=== PATIENT | male | born 1950 | race Caucasian/White ===

== ENCOUNTER 2017-04-26 09:24 | Emergency (ER) | payer MEDICARE, OTHER ==
--- NOTE | 2017-04-26 09:59 | ED ---
General Adult HPI - General Source: patient, RN notes reviewed Mode of arrival: ambulatory Limitations: no limitations <Chelsie Henning - Last Filed: 04/26/17 12:18> <Charly Garces - Last Filed: 04/26/17 21:53> - General Chief complaint: Urogenital Stated complaint: urninating blood Time Seen by Provider: 04/26/17 09:29 - History of Present Illness Initial comments: 66-year-old male who is currently on Coumadin presents to the emergency department with a chief complaint of hematuria. Patient states that he has been having on and off blood in the urine for about a week but today it started to turn very consistent. Patient denies any lightheadedness or dizziness. Patient states he has no history of this in the past. Patient denies any falls traumas or injuries or any abdominal pain. Patient states that he is not currently having any other symptoms. Patient states sometimes his stream is less then normal with this. Patient denies any recent fever, chills, shortness of breath, chest pain, back pain, abdominal pain, nausea vomiting, numbness or tingling, dysuria, constipation or diarrhea, headaches or visual changes, or any other current symptoms. (Chelsie Henning) - Related Data Home Medications Medication Instructions Recorded Confirmed Furosemide [Lasix] 20 mg PO QAM 08/11/14 04/26/17 Metoprolol Tartrate [Lopressor] 50 mg PO BID 08/11/14 04/26/17 Warfarin [Coumadin] 5 mg PO SUTUWETHSA 08/11/14 04/26/17 Cholecalciferol [Vitamin D3] 2,000 unit PO 11/02/14 04/26/17 Multivitamin [Men's Multi-Vitamin] 1 tab PO HS 11/30/15 04/26/17 glipiZIDE [Glucotrol] 5 mg PO AC-BID 11/30/15 04/26/17 Calcium/Magnesium/Zinc 1 tab PO HS 06/25/16 04/26/17 [Skhhfle-Hqhxvimwi-Ildr Tablet] Cider Vinegar [Apple Cider Vinegar] 300 mg PO HS 06/25/16 04/26/17 [place]-3 Fatty Acids/Fish Oil [Fish 1 cap PO 06/25/16 04/26/17 Oil 1,000 mg Softgel] Warfarin [Coumadin] 7.5 mg PO MOFR 06/25/16 04/26/17 metFORMIN HCL [Glucophage] 500 mg PO BID 06/25/16 04/26/17 Lisinopril [Zestril] 20 mg PO DAILY 04/26/17 04/26/17 Potassium 99 mg PO HS 04/26/17 04/26/17 Allergies Allergy/AdvReac Type Severity Reaction Status Date / Time No Known Allergies Allergy Verified 04/26/17 12:16 Review of Systems ROS Other: All systems not noted in ROS Statement are negative. <Chelsie Henning - Last Filed: 04/26/17 12:18> ROS Other: All systems not noted in ROS Statement are negative. <Charly Garces - Last Filed: 04/26/17 21:53> ROS Statement: Those systems with pertinent positive or pertinent negative responses have been documented in the HPI. 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 Mother Family Medical History: Cancer, COPD Additional Family Medical History / Comment(s): Mother at age 74 yrs after a hip fracture complicated by her COPD. She had had breast cancer. <Chelsie Henning - Last Filed: 04/26/17 12:18> General Exam Limitations: no limitations <Chelsie Henning - Last Filed: 04/26/17 12:18> <Charly Garces - Last Filed: 04/26/17 21:53> - General Exam Comments Initial Comments: General: The patient is awake and alert, in no distress, and does not appear acutely ill. Eye: Pupils are equal, round. Ears, nose, mouth and throat: There are moist mucous membranes. Neck: The neck is supple, there is no tenderness. Cardiovascular: There is a regular rate and rhythm. No murmur, rub or gallop is appreciated. Respiratory: Lungs are clear to auscultation, respirations are non-labored, breath sounds are equal. No wheezes, stridor, rales, or rhonchi. Gastrointestinal: Soft, non-distended, non-tender abdomen without masses or organomegaly noted. There is no rebound or guarding present. No CVA tenderness. Bowel sounds are unremarkable. Back: There is no tenderness to palpation in the midline. There is no obvious deformity. No rashes noted. Musculoskeletal: Normal ROM, no tenderness, There is no pedal edema. There is no calf tenderness or swelling. Sensation intact. Pulses equal bilaterally 2+. Neurological: CN II-XII intact, There are no obvious motor or sensory deficits. Coordination appears grossly intact. Speech is normal. Skin: Skin is warm and dry and no rashes or lesions are noted. Psychiatric: Cooperative, appropriate mood & affect, normal judgment. (Chelsie Henning) Medical Decision Making - Lab Data Result diagrams: 04/26/17 09:52 04/26/17 09:52 - Radiology Data Radiology results: report reviewed, image reviewed <Chelsie Henning - Last Filed: 04/26/17 12:18> - Lab Data Result diagrams: 04/26/17 09:52 04/26/17 09:52 <Charly Garces - Last Filed: 04/26/17 21:53> - Medical Decision Making 66-year-old male presents to the emergency department with a chief complaint of hematuria. Case is discussed with Dr. Thomas via Dr. Garces and he is recommending discharged home with follow-up outpatient with urology. We did discuss this with the patient is negative plan. All questions have been answered. This and the patient will be discharged home. (Chelsie Henning) Case was discussed with the patient's urologist. All laboratory studies and images were reviewed. Patient will follow up as an outpatient. He is instructed to return to the emergency department with inability to pass urine or the onset of pain. (Charly Garces) - Lab Data Lab Results 04/26/17 04/26/1717 Range/Units 09:38 09:52 09:52 WBC 5.9 (3.8-10.6) k/uL RBC 4.64 (4.30-5.90) m/uL Hgb 15.1 (13.0-17.5) gm/dL Hct 43.2 (39.0-53.0) % MCV 93.2 (80.0-100.0) fL MCH 32.5 (25.0-35.0) pg MCHC 34.8 (31.0-37.0) g/dL RDW 14.4 (11.5-15.5) % Plt Count 194 (150-450) k/uL Neutrophils % 60 % Lymphocytes % 28 % Monocytes % 4 % Eosinophils % 6 % Basophils % 1 % Neutrophils # 3.5 (1.3-7.7) k/uL Lymphocytes # 1.6 (1.0-4.8) k/uL Monocytes # 0.2 (0-1.0) k/uL Eosinophils # 0.4 (0-0.7) k/uL Basophils # 0.0 (0-0.2) k/uL PT (9.0-12.0) sec INR (<1.1) APTT (22.0-30.0) sec Sodium 138 (137-145) mmol/L Potassium 4.0 (3.5-5.1) mmol/L Chloride 100 (98-107) mmol/L Carbon Dioxide 22 (22-30) mmol/L Anion Gap 16 mmol/L BUN 21 H (9-20) mg/dL Creatinine 0.86 (0.66-1.25) mg/dL Est GFR (MDRD) Af Amer >60 (>60 ml/min/1.73 sqM) Est GFR (MDRD) Non-Af >60 (>60 ml/min/1.73 sqM) Glucose 371 H (74-99) mg/dL POC Glucose (mg/dL) (75-99) mg/dL POC Glu Storekeeper Steward ID Calcium 9.0 (8.4-10.2) mg/dL Total Bilirubin 0.9 (0.2-1.3) mg/dL AST 40 (17-59) U/L ALT 45 (21-72) U/L Alkaline Phosphatase 71 (38-126) U/L Total Protein 7.0 (6.3-8.2) g/dL Albumin 4.1 (3.5-5.0) g/dL Urine Color Red Urine Appearance Clear (Clear) Urine pH 5.5 (5.0-8.0) Ur Specific [place] 1.015 (1.001-1.035) Urine Protein 2+ H (Negative) Urine Glucose (UA) 4+ H (Negative) Urine Ketones Trace H (Negative) Urine Blood Large H (Negative) Urine Nitrite Negative (Negative) Urine Bilirubin Negative (Negative) Urine Urobilinogen <2.0 (<2.0) mg/dL Ur Leukocyte Esterase Small H (Negative) Urine RBC >182 H (0-5) /hpf Urine WBC >182 H (0-5) /hpf Urine WBC Clumps Many H (None) /hpf Urine Bacteria Rare H (None) /hpf 04/26/17 04/26/17 Range/Units 09:52 11:51 WBC (3.8-10.6) k/uL RBC (4.30-5.90) m/uL Hgb (13.0-17.5) gm/dL Hct (39.0-53.0) % MCV (80.0-100.0) fL MCH (25.0-35.0) pg MCHC (31.0-37.0) g/dL RDW (11.5-15.5) % Plt Count (150-450) k/uL Neutrophils % % Lymphocytes % % Monocytes % % Eosinophils % % Basophils % % Neutrophils # (1.3-7.7) k/uL Lymphocytes # (1.0-4.8) k/uL Monocytes # (0-1.0) k/uL Eosinophils # (0-0.7) k/uL Basophils # (0-0.2) k/uL PT 20.7 H (9.0-12.0) sec INR 2.2 (<1.1) APTT 28.9 (22.0-30.0) sec Sodium (137-145) mmol/L Potassium (3.5-5.1) mmol/L Chloride (98-107) mmol/L Carbon Dioxide (22-30) mmol/L Anion Gap mmol/L BUN (9-20) mg/dL Creatinine (0.66-1.25) mg/dL Est GFR (MDRD) Af Amer (>60 ml/min/1.73 sqM) Est GFR (MDRD) Non-Af (>60 ml/min/1.73 sqM) Glucose (74-99) mg/dL POC Glucose (mg/dL) 256 H (75-99) mg/dL POC Glu Storekeeper Steward ID [place] Calcium (8.4-10.2) mg/dL Total Bilirubin (0.2-1.3) mg/dL AST (17-59) U/L ALT (21-72) U/L Alkaline Phosphatase (38-126) U/L Total Protein (6.3-8.2) g/dL Albumin (3.5-5.0) g/dL Urine Color Urine Appearance (Clear) Urine pH (5.0-8.0) Ur Specific [place] (1.001-1.035) Urine Protein (Negative) Urine Glucose (UA) (Negative) Urine Ketones (Negative) Urine Blood (Negative) Urine Nitrite (Negative) Urine Bilirubin (Negative) Urine Urobilinogen (<2.0) mg/dL Ur Leukocyte Esterase (Negative) Urine RBC (0-5) /hpf Urine WBC (0-5) /hpf Urine WBC Clumps (None) /hpf Urine Bacteria (None) /hpf Disposition Time of Disposition: 12:21 <Chelsie Henning - Last Filed: 04/26/17 12:18> <Charly Garces - Last Filed: 04/26/17 21:53> Clinical Impression: Hematuria Disposition: HOME SELF-CARE Condition: Stable Instructions: Hematuria (ED) Additional Instructions: Please use medication as discussed. Please follow up with family doctor if symptoms have not improved over the next two days. Please return to the emergency room if your symptoms increase or worsen or for any other concerns. Referrals: Fabiano Ross DO [Primary Care Provider] - 1-2 days Payam Thomas MD [STAFF PHYSICIAN] - 1-2 days
[2017-04-26 10:10] LABS: Basophils % (A) 1 %; CH 32.6; CHCM 35.2; Eosinophils # (A) 0.4 k/uL (0-0.7); Eosinophils % (A) 6 %; HCT 43.2 % (39.0-53.0); HGB 15.1 gm/dL (13.0-17.5); Luc # (Auto) 0.08; Luc % (Auto) 1; Lymphocytes # (A) 1.6 k/uL (1.0-4.8); Lymphocytes % (A) 28 %; MCH 32.5 pg (25.0-35.0); MCHC 34.8 g/dL (31.0-37.0); MCV 93.2 fL (80.0-100.0); Monocytes # (A) 0.2 k/uL (0-1.0); Monocytes % (A) 4 %; Neutrophils # (A) 3.5 k/uL (1.3-7.7); Neutrophils % (A) 60 %; RBC 4.64 m/uL (4.30-5.90); RDW 14.4 % (11.5-15.5); WBC 5.9 k/uL (3.8-10.6); WBC (Perox) 5.49
[2017-04-26 10:15] LABS: Appearance,Urine Clear (Clear); Bacteria,Urine Rare /hpf; Bilirubin,Urine Negative (Negative); Glucose,Urine (UA) 4+ (Negative); Ketones,Urine Trace (Negative); Leukocyte Esterase,Urine Small (Negative); Nitrite,Urine Negative (Negative); PH, Urine 5.5 (5.0-8.0); Particle Count 4997; Protein,Urine 2+ (Negative); RBC,Urine >182 /hpf (0-5); Specific Gravity,Urine 1.015 (1.001-1.035); UA Billing (MACRO vs. MICRO) MICRO; Urobilinogen,Urine <2.0 mg/dL (<2.0); WBC,Urine >182 /hpf (0-5)
[2017-04-26 10:30] LABS: ALT 45 U/L (21-72); AST 40 U/L (17-59); Alkaline Phosphatase 71 U/L (38-126); Anion Gap 16 mmol/L; Blood Urea Nitrogen 21 mg/dL (9-20); Carbon Dioxide 22 mmol/L (22-30); Chloride 100 mmol/L (98-107); Glucose 371 mg/dL (74-99); Non-African American GFR(MDRD) >60 (>60 ml/min/1.73 sqM); Sodium 138 mmol/L (137-145); Total Bilirubin 0.9 mg/dL (0.2-1.3)
[2017-04-26 10:31] LABS: INR 2.2 (<1.1); Prothrombin Time 20.7 sec (9.0-12.0)
[2017-04-26 10:32] LABS: Partial Thromboplastin Time 28.9 sec (22.0-30.0)
[2017-04-26 10:45] VITALS: RESP 16
[2017-04-26] MEDS ORDERED: INSULIN LISPRO (humaLOG) 300 UNIT/3 ML VIAL SQ ONE (10:46)
[2017-04-26 11:54] LABS: Glucose,Whole Blood 256 mg/dL (75-99)
--- NOTE | 2017-04-26 12:03 | US ---
EXAMINATION TYPE: US kidneys/renal and bladder DATE OF EXAM: 04/26/2017 COMPARISON: CLINICAL HISTORY: Pain. Hematuria. No pain. Hx of renal stones and stents placed bilaterally x 1 ye ar ago EXAM MEASUREMENTS: Right Kidney: 11.4 x 5.3 x 4.7 cm Left Kidney: 12.2 x 5.5 x 5.1 cm Right Kidney: Lateral cyst appearing lesion with septation = 1.2 x 1.0 x 1.0 cm Left Kidney: wnl Bladder: The prostate gland impresses upon the urinary bladder base. Urinary bladder is otherwise unr emarkable. Bilateral Jets seen: Yes There is no evidence for hydronephrosis at this point in time. No nephrolithiasis is seen. Right moses al cortical cysts noted. The urinary bladder is anechoic. Bilateral ureteral jets are seen. IMPRESSION: 1. Renal cortical cyst.
--- NOTE | 2017-04-26 12:05 | XR ---
EXAMINATION TYPE: XR KUB DATE OF EXAM: 04/26/2017 COMPARISON: NONE HISTORY: Pain TECHNIQUE: Single supine KUB image of the abdomen is obtained FINDINGS: Small bowel demonstrates no evidence for dilatation or air fluid levels. Gas and fecal material is seen in non-distended colon. No convincing evidence for pneumoperitoneum. No unusual calcifications. The lung bases are clear. The osseous structures are intact. IMPRESSION: 1. Overall nonobstructive bowel gas pattern.
[2017-04-26 12:34] VITALS: BP 168/88; PULSE 80; TEMP 98.4
== END 2017-04-26 12:36 | disposition home or self-care (01) ==
LOC: EC 09:24
DX: R31.9 Hematuria, unspecified (principal); I10 Essential (primary) hypertension; Z79.01 Long term (current) use of anticoagulants; Z79.84 Long term (current) use of oral hypoglycemic drugs; Z79.899 Other long term (current) drug therapy
CPT/HCPCS: 36415; 51798; 74000; 76770; 80053; 81001; 85025; 85610; 85730; 99284

== ENCOUNTER 2018-01-25 07:07 | Emergency (ER) | payer MEDICARE ==
[2018-01-25] MEDS ORDERED: SODIUM CHLORIDE 0.9% 1,000 ML IV STA ×2 (07:31)
[2018-01-25] MEDS ORDERED: ONDANSETRON 4 MG/2 ML VIAL IVP STA (07:31)
[2018-01-25] MEDS ORDERED: KETOROLAC 30 MG/ML 1 ML VIAL IVP STA (07:31)
[2018-01-25] MEDS ORDERED: MORPHINE SULF 5MG/10ML VL IVP STA (07:32)
[2018-01-25] MEDS ORDERED: TAMSULOSIN 0.4 MG CAP.ER.24H PO STA (07:33)
--- NOTE | 2018-01-25 07:34 | ED ---
General Adult HPI - General Chief complaint: Abdominal Pain Stated complaint: Kidney stone Time Seen by Provider: 01/25/18 07:20 Source: patient, RN notes reviewed, old records reviewed Mode of arrival: ambulatory Limitations: no limitations - History of Present Illness Initial comments: This is a 67-year-old male to the ER for evaluation of bowel pain, right-sided flank pain and right-sided groin pain. Patient states he has history of kidney stones this is similar pain. Pain started last night around 10 PM. No nausea no vomiting no fevers. Decreased urination. No significant anterior abdominal pain, no bowel, diarrhea, history of recent surgery. - Related Data Home Medications Medication Instructions Recorded Confirmed Furosemide [Lasix] 20 mg PO SUSA 08/11/14 01/25/18 Metoprolol Tartrate [Lopressor] 50 mg PO BID 08/11/14 01/25/18 Warfarin [Coumadin] 5 mg PO SUTUWETHSA 08/11/14 01/25/18 Cholecalciferol [Vitamin D3] 2,000 unit PO HS 11/02/14 01/25/18 Multivitamin [Men's Multi-Vitamin] 1 tab PO HS 11/30/15 01/25/18 glipiZIDE [Glucotrol] 5 mg PO AC-BID 11/30/15 01/25/18 Calcium/Magnesium/Zinc 1 tab PO HS 06/25/16 01/25/18 [Nwzqrok-Zeubwrnmi-Svbc Tablet] [place]-3 Fatty Acids/Fish Oil [Fish 1 cap PO HS 06/25/16 01/25/18 Oil 1,000 mg Softgel] Warfarin [Coumadin] 7.5 mg PO MOFR 06/25/16 01/25/18 metFORMIN HCL [Glucophage] 500 mg PO BID 06/25/16 01/25/18 Lisinopril [Zestril] 20 mg PO DAILY 04/26/17 01/25/18 Potassium 99 mg PO SUSA 04/26/17 01/25/18 Allergies Allergy/AdvReac Type Severity Reaction Status Date / Time No Known Allergies Allergy Verified 01/25/18 09:03 Review of Systems ROS Statement: Those systems with pertinent positive or pertinent negative responses have been documented in the HPI. ROS Other: All systems not noted in ROS Statement are negative. 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 Mother Family Medical History: Cancer, COPD Additional Family Medical History / Comment(s): Mother at age 74 yrs after a hip fracture complicated by her COPD. She had had breast cancer. General Exam Limitations: no limitations General appearance: alert, in no apparent distress Head exam: Present: atraumatic, normocephalic, normal inspection Eye exam: Present: normal appearance, PERRL, EOMI. Absent: scleral icterus, conjunctival injection, periorbital swelling ENT exam: Present: normal exam, mucous membranes moist Neck exam: Present: normal inspection. Absent: tenderness, meningismus, lymphadenopathy Respiratory exam: Present: normal lung sounds bilaterally. Absent: respiratory distress, wheezes, rales, rhonchi, stridor Cardiovascular Exam: Present: regular rate, normal rhythm, normal heart sounds. Absent: systolic murmur, diastolic murmur, rubs, gallop, clicks GI/Abdominal exam: Present: soft, normal bowel sounds. Absent: distended, tenderness, guarding, rebound, rigid Extremities exam: Present: normal inspection, full ROM, normal capillary refill. Absent: tenderness, pedal edema, joint swelling, calf tenderness Back exam: Present: normal inspection Neurological exam: Present: alert, oriented X3, CN II-XII intact Psychiatric exam: Present: normal affect, normal mood Skin exam: Present: warm, dry, intact, normal color. Absent: rash Course Vital Signs 01/25/18 07:10 Temperature 97.1 F L Pulse Rate 81 Respiratory 18 Rate Blood Pressure 185/116 O2 Sat by Pulse 96 Oximetry - Reevaluation(s) Reevaluation #1: 01/25/18 07:33 Clinical record is reviewed, prior ER visits including prior CAT scans, prior history of kidney stone Medical Decision Making - Medical Decision Making 67 male the ER with kidney stone, right-sided K saw history of same. Prior CAT scans are reviewed, patient's pain is resolved at this time, able to urinate without difficulty, patient will be treated with pain control anti- inflammatories increase hydration. - Lab Data Result diagrams: 01/25/18 07:50 01/25/18 07:50 Lab Results 01/25/18 01/25/18 01/25/18 Range/Units 07:50 07:50 09:00 WBC 8.2 (3.8-10.6) k/uL RBC 4.72 (4.30-5.90) m/uL Hgb 15.2 (13.0-17.5) gm/dL Hct 41.5 (39.0-53.0) % MCV 88.0 (80.0-100.0) fL MCH 32.1 (25.0-35.0) pg MCHC 36.5 (31.0-37.0) g/dL RDW 14.1 (11.5-15.5) % Plt Count 184 (150-450) k/uL Neutrophils % 74 % Lymphocytes % 17 % Monocytes % 4 % Eosinophils % 3 % Basophils % 0 % Neutrophils # 6.1 (1.3-7.7) k/uL Lymphocytes # 1.4 (1.0-4.8) k/uL Monocytes # 0.3 (0-1.0) k/uL Eosinophils # 0.3 (0-0.7) k/uL Basophils # 0.0 (0-0.2) k/uL Hyperchromasia Slight Poikilocytosis Slight Sodium 136 L (137-145) mmol/L Potassium 4.1 (3.5-5.1) mmol/L Chloride 97 L (98-107) mmol/L Carbon Dioxide 25 (22-30) mmol/L Anion Gap 14 mmol/L BUN 23 H (9-20) mg/dL Creatinine 1.20 (0.66-1.25) mg/dL Est GFR (CKD-EPI)AfAm 73 (>60 ml/min/1.73 sqM) Est GFR (CKD-EPI)NonAf 63 (>60 ml/min/1.73 sqM) Glucose 245 H (74-99) mg/dL Calcium 9.2 (8.4-10.2) mg/dL Total Bilirubin 0.8 (0.2-1.3) mg/dL AST 36 (17-59) U/L ALT 44 (21-72) U/L Alkaline Phosphatase 78 (38-126) U/L Total Protein 7.0 (6.3-8.2) g/dL Albumin 3.9 (3.5-5.0) g/dL Amylase 44 (30-110) U/L Lipase 203 (23-300) U/L Urine Color Light Yellow Urine Appearance Clear (Clear) Urine pH 6.0 (5.0-8.0) Ur Specific [place] 1.007 (1.001-1.035) Urine Protein 1+ H (Negative) Urine Glucose (UA) 4+ H (Negative) Urine Ketones Trace H (Negative) Urine Blood Moderate H (Negative) Urine Nitrite Negative (Negative) Urine Bilirubin Negative (Negative) Urine Urobilinogen <2.0 (<2.0) mg/dL Ur Leukocyte Esterase Negative (Negative) Urine RBC 38 H (0-5) /hpf Urine Mucus Rare H (None) /hpf - Radiology Data Radiology results: report reviewed (Ultrasound negative for hydronephrosis), image reviewed Disposition Clinical Impression: Right ureteral stone Disposition: HOME SELF-CARE Condition: Good Instructions: Kidney Stones (ED) Referrals: Fabiano Ross DO [Primary Care Provider] - 1-2 days
[2018-01-25 08:15] LABS: Basophils % (A) 0 %; Eosinophils # (A) 0.3 k/uL (0-0.7); Eosinophils % (A) 3 %; HCT 41.5 % (39.0-53.0); HGB 15.2 gm/dL (13.0-17.5); Hyperchromasia Slight; Lymphocytes # (A) 1.4 k/uL (1.0-4.8); Lymphocytes % (A) 17 %; MCH 32.1 pg (25.0-35.0); MCHC 36.5 g/dL (31.0-37.0); Mean Platelet Volume 7.7; Monocytes # (A) 0.3 k/uL (0-1.0); Monocytes % (A) 4 %; Neutrophils # (A) 6.1 k/uL (1.3-7.7); Neutrophils % (A) 74 %; Platelet Count 184 k/uL (150-450); Poikilocytosis Slight; RBC 4.72 m/uL (4.30-5.90); RDW 14.1 % (11.5-15.5); WBC 8.2 k/uL (3.8-10.6)
[2018-01-25 08:29] LABS: Albumin 3.9 g/dL (3.5-5.0); Calcium 9.2 mg/dL (8.4-10.2); Potassium 4.1 mmol/L (3.5-5.1); Total Bilirubin 0.8 mg/dL (0.2-1.3)
--- NOTE | 2018-01-25 08:49 | US ---
EXAMINATION TYPE: US renals and bladder DATE OF EXAM: 01/25/2018 COMPARISON: 04/26/2017 CLINICAL HISTORY: 67-year-old male Pain. Technique: Multiple sonographic images of the kidneys and bladder are obtained. FINDINGS: Right Kidney: 11.8 x 6.9 x 9.0 cm Left Kidney: 12.2 x 5.6 x 6.0 cm No hydronephrosis on either side. Partial distention of the bladder limits its evaluation. Bilateral Jets seen: no Incidental echogenic appearance to the liver. IMPRESSION: 1. No hydronephrosis. 2. Partial distention of the bladder limits its evaluation. 3. Incidental echogenic appearance to the liver suggests fatty infiltration.
[2018-01-25 09:18] LABS: Appearance,Urine Clear (Clear); Bilirubin,Urine Negative (Negative); Blood,Urine Moderate (Negative); Color,Urine Light Yellow; Glucose,Urine (UA) 4+ (Negative); Ketones,Urine Trace (Negative); Leukocyte Esterase,Urine Negative (Negative); Mucus,Urine Rare /hpf; Nitrite,Urine Negative (Negative); Protein,Urine 1+ (Negative); RBC,Urine 38 /hpf (0-5); Specific Gravity,Urine 1.007 (1.001-1.035); Urobilinogen,Urine <2.0 mg/dL (<2.0)
[2018-01-25 10:10] VITALS: BP 159/96; PULSE 79; RESP 16; TEMP 97.8
== END 2018-01-25 10:23 | disposition home or self-care (01) ==
LOC: EC 07:07
DX: N20.1 Calculus of ureter (principal); I10 Essential (primary) hypertension; Z79.01 Long term (current) use of anticoagulants; Z79.84 Long term (current) use of oral hypoglycemic drugs; Z79.899 Other long term (current) drug therapy; Z80.0 Family history of malignant neoplasm of digestive organs
CPT/HCPCS: 99284; 96374; 96375 ×2; 96361 ×2; 36415; 80053; 82150; 83690; 85025; 81001; 87086; 76770; J2405; J1885; J2270

== ENCOUNTER 2018-09-30 05:01 | Observation (INO) | payer MEDICARE ==
[2018-09-30 05:45] LABS: Basophils % (A) 0 %; Eosinophils # (A) 0.3 k/uL (0-0.7); Eosinophils % (A) 4 %; HCT 46.8 % (39.0-53.0); HGB 15.3 gm/dL (13.0-17.5); Lymphocytes # (A) 1.8 k/uL (1.0-4.8); Lymphocytes % (A) 27 %; MCH 30.6 pg (25.0-35.0); MCHC 32.6 g/dL (31.0-37.0); MCV 93.8 fL (80.0-100.0); Monocytes # (A) 0.3 k/uL (0-1.0); Monocytes % (A) 4 %; Neutrophils # (A) 4.5 k/uL (1.3-7.7); Neutrophils % (A) 65 %; Platelet Count 201 k/uL (150-450); RBC 4.99 m/uL (4.30-5.90); RDW 14.6 % (11.5-15.5); WBC 6.9 k/uL (3.8-10.6)
[2018-09-30 06:00] LABS: Albumin 4.3 g/dL (3.5-5.0); Calcium 9.3 mg/dL (8.4-10.2); Potassium 3.5 mmol/L (3.5-5.1); Total Bilirubin 1.1 mg/dL (0.2-1.3); Total Protein 7.3 g/dL (6.3-8.2)
--- NOTE | 2018-09-30 06:17 | ED ---
Dizziness HPI - General Source: patient Mode of arrival: wheelchair Limitations: no limitations <Alvino Gasca - Last Filed: 09/30/18 06:04> - General Source: RN notes reviewed <Israel Montes - Last Filed: 09/30/18 10:00> - General Chief Complaint: Dizziness Stated Complaint: Lightheaded Time Seen by Provider: 09/30/18 05:25 - Related Data Home Medications Medication Instructions Recorded Confirmed Metoprolol Tartrate [Lopressor] 50 mg PO BID 08/11/14 09/30/18 Warfarin [Coumadin] 5 mg PO [id number] 08/11/14 09/30/18 Cholecalciferol [Vitamin D3] 2,000 unit PO HS 11/02/14 09/30/18 Multivitamin [Men's Multi-Vitamin] 1 tab PO HS 11/30/15 09/30/18 glipiZIDE [Glucotrol] 5 mg PO AC-BID 11/30/15 09/30/18 Warfarin [Coumadin] 7.5 mg PO MO 06/25/16 09/30/18 metFORMIN HCL [Glucophage] 500 mg PO BID 06/25/16 09/30/18 Lisinopril [Zestril] 20 mg PO DAILY 04/26/17 09/30/18 Potassium 99 mg PO DAILY 09/30/18 09/30/18 amLODIPine [Norvasc] 10 mg PO BID 09/30/18 09/30/18 hydrALAZINE HCL 10 mg PO BID 09/30/18 09/30/18 Allergies Allergy/AdvReac Type Severity Reaction Status Date / Time No Known Allergies Allergy Verified 09/30/18 07:32 Review of Systems ROS Other: All systems not noted in ROS Statement are negative. <Alvino Gasca - Last Filed: 09/30/18 06:04> ROS Other: All systems not noted in ROS Statement are negative. <Israel Montes - Last Filed: 09/30/18 10:00> ROS Statement: Those systems with pertinent positive or pertinent negative responses have been documented in the HPI. 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 Mother Family Medical History: Cancer, COPD Additional Family Medical History / Comment(s): Mother at age 74 yrs after a hip fracture complicated by her COPD. She had had breast cancer. <Alvino Gasca - Last Filed: 09/30/18 06:04> General Exam Limitations: no limitations <Alvino Gasca - Last Filed: 09/30/18 06:04> Vital Signs 09/30/18 05:04 Temperature 97.8 F Pulse Rate 69 Respiratory 18 Rate Blood Pressure 136/85 O2 Sat by Pulse 95 Oximetry EKG Findings - EKG Results: EKG: interpreted by ERMD EKG shows: atrial fibrillation (Rate approximately 89 bpm) - Blocks, Sod, Hypertrophy, ST Abn: QRS axis and voltage: left axis deviation (-30 to -90) <Alvino Gasca - Last Filed: 09/30/18 06:04> Medical Decision Making - Lab Data Result diagrams: 09/30/18 05:20 09/30/18 05:20 <Alvino Gasca - Last Filed: 09/30/18 06:04> - Lab Data Result diagrams: 09/30/18 05:20 09/30/18 05:20 <Israel Montes - Last Filed: 09/30/18 10:00> - Medical Decision Making I tried to get the patient to ambulate but he was very lightheaded and it did not feel steady and was requesting admission. I spoke with Dr. Reddy he agreed to admit the patient for 24 hours. (Israel Montes) - Lab Data Lab Results 09/30/18 09/30/18 09/30/18 Range/Units 05:20 05:20 05:20 WBC 6.9 (3.8-10.6) k/uL RBC 4.99 (4.30-5.90) m/uL Hgb 15.3 (13.0-17.5) gm/dL Hct 46.8 (39.0-53.0) % MCV 93.8 (80.0-100.0) fL MCH 30.6 (25.0-35.0) pg MCHC 32.6 (31.0-37.0) g/dL RDW 14.6 (11.5-15.5) % Plt Count 201 (150-450) k/uL Neutrophils % 65 % Lymphocytes % 27 % Monocytes % 4 % Eosinophils % 4 % Basophils % 0 % Neutrophils # 4.5 (1.3-7.7) k/uL Lymphocytes # 1.8 (1.0-4.8) k/uL Monocytes # 0.3 (0-1.0) k/uL Eosinophils # 0.3 (0-0.7) k/uL Basophils # 0.0 (0-0.2) k/uL Sodium 142 (137-145) mmol/L Potassium 3.5 (3.5-5.1) mmol/L Chloride 106 (98-107) mmol/L Carbon Dioxide 21 L (22-30) mmol/L Anion Gap 15 mmol/L BUN 24 H (9-20) mg/dL Creatinine 1.29 H (0.66-1.25) mg/dL Est GFR (CKD-EPI)AfAm 67 (>60 ml/min/1.73 sqM) Est GFR (CKD-EPI)NonAf 58 (>60 ml/min/1.73 sqM) Glucose 210 H (74-99) mg/dL Calcium 9.3 (8.4-10.2) mg/dL Magnesium 1.6 (1.6-2.3) mg/dL Total Bilirubin 1.1 (0.2-1.3) mg/dL AST 35 (17-59) U/L ALT 49 (21-72) U/L Alkaline Phosphatase 54 (38-126) U/L Troponin I (0.000-0.034) ng/mL Total Protein 7.3 (6.3-8.2) g/dL Albumin 4.3 (3.5-5.0) g/dL Urine Color Urine Appearance (Clear) Urine pH (5.0-8.0) Ur Specific [place] (1.001-1.035) Urine Protein (Negative) Urine Glucose (UA) (Negative) Urine Ketones (Negative) Urine Blood (Negative) Urine Nitrite (Negative) Urine Bilirubin (Negative) Urine Urobilinogen (<2.0) mg/dL Ur Leukocyte Esterase (Negative) 09/30/18 09/30/18 Range/Units 05:20 08:30 WBC (3.8-10.6) k/uL RBC (4.30-5.90) m/uL Hgb (13.0-17.5) gm/dL Hct (39.0-53.0) % MCV (80.0-100.0) fL MCH (25.0-35.0) pg MCHC (31.0-37.0) g/dL RDW (11.5-15.5) % Plt Count (150-450) k/uL Neutrophils % % Lymphocytes % % Monocytes % % Eosinophils % % Basophils % % Neutrophils # (1.3-7.7) k/uL Lymphocytes # (1.0-4.8) k/uL Monocytes # (0-1.0) k/uL Eosinophils # (0-0.7) k/uL Basophils # (0-0.2) k/uL Sodium (137-145) mmol/L Potassium (3.5-5.1) mmol/L Chloride (98-107) mmol/L Carbon Dioxide (22-30) mmol/L Anion Gap mmol/L BUN (9-20) mg/dL Creatinine (0.66-1.25) mg/dL Est GFR (CKD-EPI)AfAm (>60 ml/min/1.73 sqM) Est GFR (CKD-EPI)NonAf (>60 ml/min/1.73 sqM) Glucose (74-99) mg/dL Calcium (8.4-10.2) mg/dL Magnesium (1.6-2.3) mg/dL Total Bilirubin (0.2-1.3) mg/dL AST (17-59) U/L ALT (21-72) U/L Alkaline Phosphatase (38-126) U/L Troponin I <0.012 (0.000-0.034) ng/mL Total Protein (6.3-8.2) g/dL Albumin (3.5-5.0) g/dL Urine Color Yellow Urine Appearance Clear (Clear) Urine pH 5.0 (5.0-8.0) Ur Specific [place] 1.011 (1.001-1.035) Urine Protein Trace H (Negative) Urine Glucose (UA) 2+ H (Negative) Urine Ketones 1+ H (Negative) Urine Blood Negative (Negative) Urine Nitrite Negative (Negative) Urine Bilirubin Negative (Negative) Urine Urobilinogen <2.0 (<2.0) mg/dL Ur Leukocyte Esterase Negative (Negative) Disposition <Alvino Gasca - Last Filed: 09/30/18 06:04> Time of Disposition: 09:56 <Israel Montes - Last Filed: 09/30/18 10:00> Clinical Impression: Lightheaded Disposition: ADMITTED IP TO THIS HOSP Referrals: Fabiano Ross DO [Primary Care Provider] - 1-2 days
--- NOTE | 2018-09-30 08:11 | XR ---
EXAMINATION TYPE: XR chest 1V portable DATE OF EXAM: 09/30/2018 Comparison: 11/30/2015 Clinical History: 68-year-old male dizzy Findings: Rightward patient rotation ultrasound normal cardiomediastinal contours. The heart remains mild to mo derately enlarged. Evaluation/ectasia of the thoracic aorta. Strandy atelectasis in the lower lungs. No john paul consolidation or pleural effusion. Impression: Stable cardiomegaly. Strandy atelectasis in the lower lungs. No definite acute process.
[2018-09-30 08:42] LABS: Appearance,Urine Clear (Clear); Bilirubin,Urine Negative (Negative); Blood,Urine Negative (Negative); Color,Urine Yellow; Glucose,Urine (UA) 2+ (Negative); Ketones,Urine 1+ (Negative); Leukocyte Esterase,Urine Negative (Negative); Nitrite,Urine Negative (Negative); Protein,Urine Trace (Negative); Specific Gravity,Urine 1.011 (1.001-1.035); Urobilinogen,Urine <2.0 mg/dL (<2.0)
[2018-09-30] MEDS ORDERED: SODIUM CHLORIDE 0.9% 1,000 ML IV ONE (10:00)
[2018-09-30 12:22] LABS: Glucose,Whole Blood 160 mg/dL (75-99)
[2018-09-30] MEDS ORDERED: hydrALAZINE HCL 10 MG TAB PO SCH (12:45)
[2018-09-30] MEDS ORDERED: NON-FORMULARY DRUG (Potassium [Potassium] 99 MG) PO SCH (13:00)
[2018-09-30 13:19] LABS: INR 3.7 (<1.2); Prothrombin Time 35.5 sec (9.0-12.0)
[2018-09-30] MEDS: METOPROLOL TARTRATE 50 MG TAB PO SCH ×2 (14:20→20:23)
[2018-09-30] MEDS: LISINOPRIL 20 MG TAB PO SCH (14:22)
[2018-09-30] MEDS: metFORMIN 500 MG TAB PO SCH ×2 (14:22→20:22)
[2018-09-30 17:22] LABS: Glucose,Whole Blood 141 mg/dL (75-99)
[2018-09-30] MEDS: glipiZIDE 5 MG TAB PO SCH (17:31)
[2018-09-30] MEDS: amLODIPine 10 MG TAB PO SCH (17:31)
[2018-09-30] MEDS ORDERED: WARFARIN 2.5 MG TAB PO ONE (18:00)
[2018-09-30] MEDS ORDERED: WARFARIN 5 MG TAB PO SCH (18:00)
[2018-09-30] MEDS ORDERED: LACTATED RINGERS 1,000 ML IV SCH (18:00)
--- NOTE | 2018-09-30 18:26 | HP ---
HISTORY AND PHYSICAL DATE OF ADMISSION: 09/30/2018. DATE OF SERVICE: 09/30/2018. PRESENTING COMPLAINT: Dizzy. HISTORY OF PRESENTING COMPLAINT: This is a pleasant 68-year-old patient of Dr. Ross. Chronic stable medical conditions include paroxysmal atrial fibrillation, congestive heart failure, EF 40%, diabetes, GERD, hypertension. The patient this morning got up, just felt a bit not right, maybe a little confused. A little bit dizzy. There was no fever. No chills. No bowel symptoms. No urinary symptoms. Just felt a bit odd and decided to present to the hospital. Did call his daughter to bring him in. When he initially presented to the ER, he was afebrile. Blood pressure was good. Just not feeling right. His BUN and creatinine was 24 and 1.29. The patient was started on IV fluids IV fluids. Denies any respiratory symptoms. No urinary symptoms. REVIEW OF SYSTEMS: CONSTITUTIONAL: Tired. HEENT: None. RESPIRATORY: None. CARDIOVASCULAR: None. GASTROINTESTINAL: Heartburn. GENITOURINARY: None. MUSCULOSKELETAL none. DERMATOLOGICAL, HEMATOLOGIC, LYMPHATICS: none. PSYCHIATRY none. NEUROLOGICAL none. 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 PAST SURGICAL HISTORY: Bladder surgery, cardiac catheterization that was normal in 2013, tumor removed near the right carotid, cystoscopy, bilateral ureteral calculus removed, bilateral stents were placed, vasectomy. SOCIAL HISTORY: The patient lives at [facility]. No smoking. No alcohol. FAMILY HISTORY: Father with stomach cancer, metastasis. HOME MEDICATIONS: 1. Norvasc 10 mg p.o. daily. 2. Metformin 500 mg p.o. b.i.d. 3. Hydralazine 10 mg p.o. b.i.d. 4. Glucotrol 5 mg a.c. b.i.d. 5. Coumadin 7.5 mg on Thursday, 5 mg on Thursday, Thursday, Thursday, , Thursday, Thursday. 6. Men's multivitamin 1 tablet p.o. q.h.s. 7. Lopressor 50 mg p.o. b.i.d. 8. Zestril 20 mg p.o. daily. 9. Vitamin D3 2000 units p.o. q.h.s. ALLERGIES: None. PHYSICAL EXAMINATION: VITAL SIGNS: Vital signs on presentation, temperature 97.8, pulse 69, respiration 18, blood pressure 132/85, pulse ox 95 percent on room air. Orthostatics were negative. GENERAL APPEARANCE: Well built, BMI 40.7. Lying in bed, a bit tired. EYES: Pupils equal. Conjunctivae normal. HEENT: External appearance of nose and ears normal. Oral cavity a bit dry. NECK: JVD unable to assess. Mass not palpable. RESPIRATORY: Effort normal. LUNGS: Fair entry. CARDIOVASCULAR: First and second sounds normal. No edema. ABDOMEN: Soft, nontender. Liver and spleen not palpable. LYMPHATICS: No lymph nodes palpable in the neck and axilla. PSYCHIATRY: Alert and oriented x3. Mood and affect normal. NEUROLOGICAL: Pupils equal, cranial nerves grossly intact. Power and sensation grossly intact. INVESTIGATIONS: White count 6.9, hemoglobin 15.3, INR 3.7, BUN 24, creatinine 1.29. Troponin negative. EKG tracing personally reviewed by me shows atrial fibrillation, rate controlled. X-ray film personally reviewed by me: Chest x-ray is portable, some cardiomegaly. ASSESSMENT: 1. This is a patient presents with some dizziness, not feeling well. No fever. No chills. No respiratory symptoms. No urinary symptoms, probably dehydrated. Creatinine is up to 1.29 is on a diuretic and it is probably his symptoms cause. 2. Persistent atrial fibrillation chronically on Coumadin. 3. Coumadin monitoring. 4. Chronic congestive heart failure from systolic dysfunction, ejection fraction 40%. 5. Diabetes mellitus type 2 on oral hypoglycemic. 6. Gastroesophageal reflux disease. 7. Essential hypertension. PLAN: We will hydrate the patient. Recheck labs in the morning. Other medications to continue. Will cut back the dose of Coumadin tonight. Check INR in the morning. Help the patient out of bed, ambulate as tolerated. Follow up with Dr. Ross when he is discharged. MMODL / IJN: [id number] /
[2018-09-30 18:39] LABS: Hemoglobin A1C 8.2 % (4.0-6.0)
[2018-09-30 20:12] LABS: Glucose,Whole Blood 107 mg/dL (75-99)
[2018-09-30] MEDS ORDERED: MULTIVITAMINS, THERA 1 EACH TAB PO SCH (21:00)
[2018-09-30] MEDS ORDERED: amLODIPine 10 MG TAB PO SCH ×2 (21:00)
[2018-09-30] MEDS ORDERED: CHOLECALCIFEROL 1,000 UNIT TAB PO SCH (21:00)
[2018-10-01 07:13] LABS: Glucose,Whole Blood 169 mg/dL (75-99)
[2018-10-01 08:00] LABS: INR 4.3 (<1.2)
[2018-10-01 08:11] LABS: Calcium 9.1 mg/dL (8.4-10.2); Potassium 4.3 mmol/L (3.5-5.1)
[2018-10-01] MEDS: glipiZIDE 5 MG TAB PO SCH (09:04)
[2018-10-01] MEDS: amLODIPine 10 MG TAB PO SCH (09:04)
[2018-10-01] MEDS: LISINOPRIL 20 MG TAB PO SCH (09:04)
[2018-10-01] MEDS: METOPROLOL TARTRATE 50 MG TAB PO SCH (09:05)
[2018-10-01] MEDS: metFORMIN 500 MG TAB PO SCH (09:05)
[2018-10-01 11:16] LABS: Glucose,Whole Blood 146 mg/dL (75-99)
[2018-10-01 12:16] VITALS: BP 126/86; PULSE 60; RESP 15; TEMP 98.1
[2018-10-04] MEDS ORDERED: WARFARIN 5 MG TAB PO SCH (18:00)
--- NOTE | 2018-10-05 16:07 | DS ---
DISCHARGE SUMMARY DATE OF ADMISSION: 09/30/2018 DATE OF DISCHARGE: 10/01/2018 FINAL DIAGNOSES: 1. Acute dizziness from acute dehydration. 2. Persistent atrial fibrillation, for which patient is on Coumadin. 3. Coumadin monitoring. 4. Chronic congestive heart failure from systolic dysfunction, ejection fraction 40%. 5. Diabetes mellitus, type 2, on oral hypoglycemic. 6. Gastroesophageal reflux disease. 7. Essential hypertension. HOSPITAL COURSE: This patient presented with not feeling well, dizzy, lightheaded, was found to be a bit dehydrated. Creatinine initially was 1.29. With hydration it did come back to 1.13. Patient was feeling well, back to his baseline. Care was discussed with the patient's daughter at the bedside on the day of discharge. INR was a bit up; no evidence of bleeding. Hence dosing before going home was discussed with the patient. PHYSICAL EXAMINATION: Temperature 98.1, pulse 60, respiration 15, blood pressure 126/86. LABS: INR 4.3. BUN 19, creatinine 1.13. DISCHARGE MEDICATIONS: 1. Lopressor 50 mg b.i.d. 2. Coumadin 5 mg Thursday, Thursday, Thursday, , Thursday, Thursday. 3. Vitamin D3 2000 units p.o. at bedtime. 4. Men's multivitamin 1 tablet p.o. at bedtime. 5. Glucotrol 5 mg p.o. before meals b.i.d. 6. Glucophage 500 mg p.o. b.i.d. 7. Zestril 20 mg p.o. daily. 8. Potassium 99 mg p.o. daily. 9. Norvasc 10 mg p.o. daily. ADDITIONAL INSTRUCTIONS FOR COUMADIN: Coumadin was told to be held on the day of the discharge. Next day, take 2.5 mg and then resume 5 mg from the day after. Follow up with Dr. Ross in 2 days. INR to be checked on 10/05/2018. MMODL / IJN: [id number] /
== END 2018-10-01 15:35 | disposition home or self-care (01) ==
LOC: EC 05:01 → 3NMEDONC 10:09
PROVIDERS: ADMIT Hospitalist; ATTEND Hospitalist
DX: E86.0 Dehydration (principal); I11.0 Hypertensive heart disease with heart failure; I50.22 Chronic systolic (congestive) heart failure; I48.0 Paroxysmal atrial fibrillation; E11.9 Type 2 diabetes mellitus without complications; F41.9 Anxiety disorder, unspecified; K21.9 Gastro-esophageal reflux disease without esophagitis; I87.2 Venous insufficiency (chronic) (peripheral); Z79.01 Long term (current) use of anticoagulants; Z79.84 Long term (current) use of oral hypoglycemic drugs; Z79.899 Other long term (current) drug therapy; Z87.442 Personal history of urinary calculi; Z85.89 Personal history of malignant neoplasm of other organs and systems; Z92.3 Personal history of irradiation; Z98.52 Vasectomy status; Z80.0 Family history of malignant neoplasm of digestive organs; Z80.3 Family history of malignant neoplasm of breast; Z82.5 Family history of asthma and other chronic lower respiratory diseases; Z84.89 Family history of other specified conditions
CPT/HCPCS: 96360; 96361; 99285; 36415; 93005; 80053; 80048; 83735; 84484; 85025; 85610 ×2; 81003; 83036; 71045; G0378 ×2

== ENCOUNTER 2018-10-09 08:40 | Emergency (ER) | payer MEDICARE ==
[2018-10-09 08:51] VITALS: TEMP 97.6
[2018-10-09] MEDS ORDERED: SODIUM CHLORIDE 0.9% 1,000 ML IV STA (09:12)
[2018-10-09] MEDS ORDERED: SODIUM CHLORIDE 0.9% 500 ML 500 ML IV STA ×2 (09:12→10:00)
[2018-10-09] MEDS ORDERED: MECLIZINE 12.5 MG TAB PO STA ×2 (09:13→11:09)
--- NOTE | 2018-10-09 09:18 | ED ---
General Adult HPI - General Chief complaint: Weakness Stated complaint: Lightheaded Time Seen by Provider: 10/09/18 09:00 Source: patient, family, RN notes reviewed Mode of arrival: ambulatory Limitations: no limitations - History of Present Illness Initial comments: Patient is a pleasant 68-year-old male presenting to the emergency Department not feeling well. Patient has a very difficult time explaining his symptoms and is very vague. Patient states multiple times that he just doesn't feel well. No pain or dyspnea. No isolated area of weakness. Patient is unclear if he may feel fatigued and generally weak. states there has been some occasional confusion however is not able to further provide examples of this. Patient admits to feeling somewhat lightheaded. Patient denies spinning type sensation. - Related Data Home Medications Medication Instructions Recorded Confirmed Metoprolol Tartrate [Lopressor] 50 mg PO BID 08/11/14 10/09/18 Warfarin [Coumadin] 5 mg PO SUMOTUWETHFR 08/11/14 10/09/18 Cholecalciferol [Vitamin D3] 2,000 unit PO HS 11/02/14 10/09/18 Multivitamin [Men's Multi-Vitamin] 1 tab PO HS 11/30/15 10/09/18 glipiZIDE [Glucotrol] 5 mg PO AC-BID 11/30/15 10/09/18 metFORMIN HCL [Glucophage] 500 mg PO BID 06/25/16 10/09/18 Lisinopril [Zestril] 20 mg PO DAILY 04/26/17 10/09/18 Potassium 99 mg PO DAILY 09/30/18 10/09/18 amLODIPine [Norvasc] 10 mg PO DAILY 09/30/18 10/09/18 Warfarin [Coumadin] 7.5 mg PO SA 10/09/18 10/09/18 Allergies Allergy/AdvReac Type Severity Reaction Status Date / Time No Known Allergies Allergy Verified 10/09/18 09:12 Review of Systems ROS Statement: Those systems with pertinent positive or pertinent negative responses have been documented in the HPI. ROS Other: All systems not noted in ROS Statement are negative. Constitutional: Denies: fever Eyes: Denies: eye pain ENT: Denies: ear pain Respiratory: Denies: cough Cardiovascular: Denies: chest pain Endocrine: Reports: as per HPI Gastrointestinal: Denies: abdominal pain, vomiting Genitourinary: Denies: dysuria Musculoskeletal: Denies: back pain Skin: Denies: rash Neurological: Reports: as per HPI. Denies: headache Past Medical History Past Medical History: Atrial Fibrillation, Heart Failure, Diabetes Mellitus, Hypertension, Vascular Disorder Additional Past Medical History / Comment(s): Cardiomyopathy, NIDDM type II, past L lower leg venous statsis ulcer, 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 Past Anesthesia/Blood Transfusion Reactions: No Reported Reaction Past Psychological History: No Psychological Hx Reported, Anxiety Smoking Status: Never smoker Past Alcohol Use History: None Reported Past Drug Use History: None Reported - Past Family History Father Family Medical History: Cancer Additional Family Medical History / Comment(s): Father had stomach cancer with mets which he of at age 62 yrs. Mother Family Medical History: Cancer, COPD Additional Family Medical History / Comment(s): Mother at age 74 yrs after a hip fracture complicated by her COPD. She had had breast cancer. General Exam Limitations: no limitations General appearance: alert, in no apparent distress Head exam: Present: atraumatic Eye exam: Present: normal appearance, PERRL, EOMI. Absent: nystagmus ENT exam: Present: normal oropharynx Neck exam: Present: normal inspection Respiratory exam: Present: normal lung sounds bilaterally Cardiovascular Exam: Present: regular rate, irregular rhythm GI/Abdominal exam: Present: soft. Absent: tenderness Extremities exam: Present: normal inspection Neurological exam: Present: alert, oriented X3, CN II-XII intact. Absent: motor sensory deficit Expanded Neurological exam: Present: protecting the airway Patient oriented to: Present: person, place, time Speech: Present: fluid speech Cranial nerves: EOM's Intact: Normal Sensory exam: Upper Extremity Light Touch: Normal, Lower Extremity Light Touch: Normal Motor strength exam: RUE: 5, LUE: 5, RLE: 5, LLE: 5 Eye Response: (4) open spontaneously Motor Response: (6) obeys commands Verbal Response: (5) oriented Psychiatric exam: Present: normal affect, normal mood Skin exam: Present: normal color Course Vital Signs 10/09/18 10/09/18 10/09/18 08:48 11:00 12:20 Temperature 97.6 F Pulse Rate 83 81 Pulse Rate [ 101 H Sitting] Pulse Rate [ 76 Standing] Pulse Rate [ 88 Supine] Respiratory 20 18 Rate Blood Pressure 184/94 133/92 Blood Pressure 134/95 [Sitting] Blood Pressure 123/98 [Standing] Blood Pressure 136/98 [Supine] O2 Sat by Pulse 98 97 Oximetry EKG Findings - EKG Comments: EKG Findings:: A. fib with rate of 102. QRS 106. QT 360. QTC 469. Left axis. Downward QRS inferior. No acute ST change. Medical Decision Making - Medical Decision Making Patient reevaluated and significantly improved following Ativan. Patient did not want further medication for dizziness. Daughter did suggest something for his nerves. Patient now admits to feeling increased stress recently. Patient has several people that he lives with as well as some distant family members that do cause increased stress on him. No suicidal thoughts. Patient is agreeable to follow-up with his doctor and a counselor. - Lab Data Result diagrams: 10/09/18 09:05 10/09/18 09:05 Lab Results 10/09/18 10/09/18 10/09/18 Range/Units 09:05 09:05 09:05 WBC 7.2 (3.8-10.6) k/uL RBC 4.80 (4.30-5.90) m/uL Hgb 14.8 (13.0-17.5) gm/dL Hct 44.4 (39.0-53.0) % MCV 92.3 (80.0-100.0) fL MCH 30.8 (25.0-35.0) pg MCHC 33.4 (31.0-37.0) g/dL RDW 14.6 (11.5-15.5) % Plt Count 209 (150-450) k/uL Neutrophils % 73 % Lymphocytes % 20 % Monocytes % 3 % Eosinophils % 3 % Basophils % 0 % Neutrophils # 5.2 (1.3-7.7) k/uL Lymphocytes # 1.5 (1.0-4.8) k/uL Monocytes # 0.2 (0-1.0) k/uL Eosinophils # 0.2 (0-0.7) k/uL Basophils # 0.0 (0-0.2) k/uL PT (9.0-12.0) sec INR (<1.2) APTT (22.0-30.0) sec Sodium 143 (137-145) mmol/L Potassium 3.5 (3.5-5.1) mmol/L Chloride 109 H (98-107) mmol/L Carbon Dioxide 19 L (22-30) mmol/L Anion Gap 15 mmol/L BUN 22 H (9-20) mg/dL Creatinine 1.22 (0.66-1.25) mg/dL Est GFR (CKD-EPI)AfAm 71 (>60 ml/min/1.73 sqM) Est GFR (CKD-EPI)NonAf 62 (>60 ml/min/1.73 sqM) Glucose 162 H (74-99) mg/dL Calcium 9.1 (8.4-10.2) mg/dL Magnesium 1.5 L (1.6-2.3) mg/dL Total Bilirubin 1.1 (0.2-1.3) mg/dL AST 39 (17-59) U/L ALT 55 (21-72) U/L Alkaline Phosphatase 53 (38-126) U/L Total Creatine Kinase 84 (55-170) U/L CK-MB (CK-2) 0.6 (0.0-2.4) ng/mL CK-MB (CK-2) Rel Index 0.7 Troponin I <0.012 (0.000-0.034) ng/mL Total Protein 7.0 (6.3-8.2) g/dL Albumin 4.1 (3.5-5.0) g/dL TSH 1.090 (0.465-4.680) mIU/L Urine Color Urine Appearance (Clear) Urine pH (5.0-8.0) Ur Specific [place] (1.001-1.035) Urine Protein (Negative) Urine Glucose (UA) (Negative) Urine Ketones (Negative) Urine Blood (Negative) Urine Nitrite (Negative) Urine Bilirubin (Negative) Urine Urobilinogen (<2.0) mg/dL Ur Leukocyte Esterase (Negative) Urine RBC (0-5) /hpf Urine WBC (0-5) /hpf Hyaline Casts (0-2) /lpf Urine Mucus (None) /hpf 10/09/18 10/09/18 Range/Units 09:05 10:45 WBC (3.8-10.6) k/uL RBC (4.30-5.90) m/uL Hgb (13.0-17.5) gm/dL Hct (39.0-53.0) % MCV (80.0-100.0) fL MCH (25.0-35.0) pg MCHC (31.0-37.0) g/dL RDW (11.5-15.5) % Plt Count (150-450) k/uL Neutrophils % % Lymphocytes % % Monocytes % % Eosinophils % % Basophils % % Neutrophils # (1.3-7.7) k/uL Lymphocytes # (1.0-4.8) k/uL Monocytes # (0-1.0) k/uL Eosinophils # (0-0.7) k/uL Basophils # (0-0.2) k/uL PT 38.1 H (9.0-12.0) sec INR 4.0 H (<1.2) APTT 34.0 H (22.0-30.0) sec Sodium (137-145) mmol/L Potassium (3.5-5.1) mmol/L Chloride (98-107) mmol/L Carbon Dioxide (22-30) mmol/L Anion Gap mmol/L BUN (9-20) mg/dL Creatinine (0.66-1.25) mg/dL Est GFR (CKD-EPI)AfAm (>60 ml/min/1.73 sqM) Est GFR (CKD-EPI)NonAf (>60 ml/min/1.73 sqM) Glucose (74-99) mg/dL Calcium (8.4-10.2) mg/dL Magnesium (1.6-2.3) mg/dL Total Bilirubin (0.2-1.3) mg/dL AST (17-59) U/L ALT (21-72) U/L Alkaline Phosphatase (38-126) U/L Total Creatine Kinase (55-170) U/L CK-MB (CK-2) (0.0-2.4) ng/mL CK-MB (CK-2) Rel Index Troponin I (0.000-0.034) ng/mL Total Protein (6.3-8.2) g/dL Albumin (3.5-5.0) g/dL TSH (0.465-4.680) mIU/L Urine Color Yellow Urine Appearance Clear (Clear) Urine pH 5.5 (5.0-8.0) Ur Specific [place] 1.019 (1.001-1.035) Urine Protein 1+ H (Negative) Urine Glucose (UA) Trace H (Negative) Urine Ketones 1+ H (Negative) Urine Blood Negative (Negative) Urine Nitrite Negative (Negative) Urine Bilirubin Negative (Negative) Urine Urobilinogen <2.0 (<2.0) mg/dL Ur Leukocyte Esterase Negative (Negative) Urine RBC <1 (0-5) /hpf Urine WBC 1 (0-5) /hpf Hyaline Casts 5 H (0-2) /lpf Urine Mucus Rare H (None) /hpf - Radiology Data Radiology results: report reviewed (Computed tomography scan of the brain shows no acute intercranial abnormality. Degenerative changes. Sinus disease.), image reviewed (Chest x-ray shows cardiomegaly. No acute process) Disposition Clinical Impression: Anxiety, Lightheaded Disposition: HOME SELF-CARE Condition: Stable Instructions: Dizziness (ED), Social Anxiety Disorder (ED) Additional Instructions: Please follow-up with primary care physician in the next day or 2 for recheck. Please also follow-up with counselor. Return for weakness, confusion, worsening change in symptoms or other concerns. Is patient prescribed a controlled substance at d/c from ED?: No Referrals: Fabiano Ross DO [Primary Care Provider] - 1-2 days Time of Disposition: 12:31
[2018-10-09 09:37] LABS: Basophils % (A) 0 %; Eosinophils # (A) 0.2 k/uL (0-0.7); Eosinophils % (A) 3 %; HCT 44.4 % (39.0-53.0); HGB 14.8 gm/dL (13.0-17.5); Lymphocytes # (A) 1.5 k/uL (1.0-4.8); Lymphocytes % (A) 20 %; MCH 30.8 pg (25.0-35.0); MCHC 33.4 g/dL (31.0-37.0); MCV 92.3 fL (80.0-100.0); Mean Platelet Volume 7.9; Monocytes # (A) 0.2 k/uL (0-1.0); Monocytes % (A) 3 %; Neutrophils # (A) 5.2 k/uL (1.3-7.7); Neutrophils % (A) 73 %; Platelet Count 209 k/uL (150-450); RDW 14.6 % (11.5-15.5); WBC 7.2 k/uL (3.8-10.6)
[2018-10-09 09:46] LABS: Prothrombin Time 38.1 sec (9.0-12.0)
[2018-10-09 09:47] LABS: Albumin 4.1 g/dL (3.5-5.0); Calcium 9.1 mg/dL (8.4-10.2); Magnesium 1.5 mg/dL (1.6-2.3); Potassium 3.5 mmol/L (3.5-5.1); Total Bilirubin 1.1 mg/dL (0.2-1.3)
--- NOTE | 2018-10-09 09:51 | CT ---
EXAMINATION TYPE: CT brain wo con DATE OF EXAM: 10/09/2018 COMPARISON: NONE HISTORY: Dizziness and weakness CT DLP: 1095.4 mGycm Automated exposure control for dose reduction was used. FINDINGS: There are mild, generalized changes of sulcal prominence and ventriculomegaly compatible with atrophi c change. There is mild, diffuse periventricular white matter lucency, compatible with small vessel i schemic change. There is no acute focal lesion, mass effect or midline shift identified. I do not see evidence of intracranial blood. There is mild mucoperiosteal thickening involving the posterior ethmoid air cells on the right as wel l as the sphenoid air cell on the right. The remainder the paranasal sinuses and mastoids are clear. The bony calvarium is intact. IMPRESSION: 1. NO ACUTE INTRACRANIAL ABNORMALITY. 2. MILD DEGENERATIVE CHANGE. 3. RIGHT POSTERIOR ETHMOIDAL AND SPHENOIDAL MUCOSAL DISEASE.
--- NOTE | 2018-10-09 09:52 | XR ---
EXAMINATION TYPE: XR chest 2V DATE OF EXAM: 10/09/2018 HISTORY: Weakness. REFERENCE: Previous study dated 09/30/2018. FINDINGS: Lung volumes are prominent. The heart is enlarged. The lungs are clear. Pleural spaces are clear. IMPRESSION: 1. CARDIOMEGALY. 2. PLEASE CORRELATE FOR COPD.
[2018-10-09 09:56] LABS: Creatine Kinase 84 U/L (55-170)
[2018-10-09] MEDS ORDERED: MAGNESIUM OXIDE 400 MG TAB PO STA (10:02)
[2018-10-09 10:09] LABS: Creatine Kinase MB 0.6 ng/mL (0.0-2.4); Troponin I <0.012 ng/mL (0.000-0.034)
[2018-10-09 11:00] LABS: Appearance,Urine Clear (Clear); Bilirubin,Urine Negative (Negative); Blood,Urine Negative (Negative); Color,Urine Yellow; Glucose,Urine (UA) Trace (Negative); Hyaline Casts,Urine 5 /lpf (0-2); Ketones,Urine 1+ (Negative); Leukocyte Esterase,Urine Negative (Negative); Mucus,Urine Rare /hpf; Nitrite,Urine Negative (Negative); PH, Urine 5.5 (5.0-8.0); Protein,Urine 1+ (Negative); RBC,Urine <1 /hpf (0-5); Specific Gravity,Urine 1.019 (1.001-1.035); Urobilinogen,Urine <2.0 mg/dL (<2.0); WBC,Urine 1 /hpf (0-5)
[2018-10-09] MEDS ORDERED: METOCLOPRAMIDE 5 MG/ML 2 ML VIAL IVP STA (11:09)
[2018-10-09] MEDS ORDERED: LORazepam 2 MG/ML INJ IV STA (11:37)
[2018-10-09 12:21] VITALS: RESP 18
[2018-10-09 13:02] VITALS: BP 141/72; PULSE 84
== END 2018-10-09 13:00 | disposition home or self-care (01) ==
LOC: EC 08:40
DX: R42 Dizziness and giddiness (principal); F41.9 Anxiety disorder, unspecified; R53.1 Weakness; I48.91 Unspecified atrial fibrillation; I11.0 Hypertensive heart disease with heart failure; I50.9 Heart failure, unspecified; E11.9 Type 2 diabetes mellitus without complications; Z85.828 Personal history of other malignant neoplasm of skin; Z79.84 Long term (current) use of oral hypoglycemic drugs; Z79.01 Long term (current) use of anticoagulants; Z79.899 Other long term (current) drug therapy; Z95.818 Presence of other cardiac implants and grafts
CPT/HCPCS: 36415; 93005; 80053; 82550; 82553; 83735; 84443; 84484; 85025; 85610; 85730; 81001; 71046; 70450; 99285; 96374; 96361 ×3; J2060

== ENCOUNTER 2024-03-24 19:51 | Inpatient (IN) | payer MEDICARE ==
--- NOTE | 2024-03-24 20:11 | CT ---
EXAMINATION TYPE: CODE STROKE: CT brain wo contr DATE OF EXAM: 03/24/2024 HISTORY: code stroke, unable to speak or raise legs. CT DLP: 1099.6 mGycm. Automated Exposure Control for Dose Reduction was Utilized. TECHNIQUE: CT scan of the head is performed without contrast. COMPARISON: None. FINDINGS: There is no acute intracranial hemorrhage or midline shift identified. There is prominent l ow-attenuation in the bilateral centrum semiovale and hernandez radiata, nonspecific but usually reflect ing chronic small vessel ischemic change. There is no definite acute intra-axial attenuation defect. No extra-axial attenuation defect or fluid collections. There is diffuse ventricular and sulcal promi nence consistent with diffuse age-related cerebral atrophy. Globes are unremarkable. Paranasal sinuses and middle ear cavities and mastoid sinus air cells are clear. IMPRESSION: No definite acute process.
[2024-03-24 20:13] LABS: Glucose,Whole Blood 155 mg/dL (70-110)
--- NOTE | 2024-03-24 20:23 | ED ---
Neuro HPI - General Chief Complaint: Neuro Symptoms/Deficit Stated Complaint: Code Stroke Time Seen by Provider: 03/24/24 20:10 Source: EMS Mode of arrival: EMS - History of Present Illness Is the patient presenting with stroke symptoms?: Yes Initial Comments: 73-year-old male with past medical history of dementia, A-fib, diabetes who presents emergency department as a code stroke. Patient was apparently going to the bathroom when he had sudden onset of alteration in his mental status. Patient was last seen normal around 715. EMS were called to the house where they found the patient to have right-sided weakness patient was nonverbal and had difficulty following commands. Patient reportedly has a history of A-fib. He is not on any medications. Patient cannot provide much history and therefore the HPI is limited Upon speaking with the daughter over the phone she states that he stopped taking all of his medications 6 years ago. He has a history of dementia and she is currently assisting him until he declines. She is requesting some type of placement or palliative/hospice care. - Related Data Home Medications: Home Medications Medication Instructions Recorded Confirmed No Known Home Medications 03/24/24 03/24/24 Allergies/Adverse Reactions: Allergies Allergy/AdvReac Type Severity Reaction Status Date / Time No Known Allergies Allergy Verified 03/24/24 20:37 Review of Systems ROS Statement: Those systems with pertinent positive or pertinent negative responses have been documented in the HPI. ROS Other: All systems not noted in ROS Statement are negative. General Exam Limitations: altered mental status, physical limitation General appearance: alert, lethargic Head exam: Present: atraumatic, normocephalic, normal inspection Eye exam: Present: normal appearance, PERRL, EOMI. Absent: scleral icterus, conjunctival injection, periorbital swelling Respiratory exam: Present: normal lung sounds bilaterally. Absent: respiratory distress, wheezes, rales, rhonchi, stridor Cardiovascular Exam: Present: tachycardia GI/Abdominal exam: Present: soft, normal bowel sounds. Absent: distended, tenderness, guarding, rebound, rigid Neurological exam: Present: alert, other (does not follow commands) Psychiatric exam: Present: flat affect Stroke MDM - Lab Data Result diagrams: 03/27/24 07:57 03/28/24 07:47 Lab Results 03/24/24 03/24/24 03/24/24 Range/Units 20:11 20:14 20:14 WBC 6.9 (3.8-10.6) k/uL RBC 4.03 L (4.30-5.90) m/uL Hgb 12.2 L (13.0-17.5) gm/dL Hct 37.1 L (39.0-53.0) % MCV 92.1 (80.0-100.0) fL MCH 30.3 (25.0-35.0) pg MCHC 32.9 (31.0-37.0) g/dL RDW 14.8 (11.5-15.5) % Plt Count 194 (150-450) k/uL MPV 7.8 Neutrophils % 87 % Lymphocytes % 6 % Monocytes % 6 % Eosinophils % 1 % Basophils % 0 % Neutrophils # 6.0 (1.3-7.7) k/uL Lymphocytes # 0.4 L (1.0-4.8) k/uL Monocytes # 0.4 (0-1.0) k/uL Eosinophils # 0.0 (0-0.7) k/uL Basophils # 0.0 (0-0.2) k/uL PT (10.0-12.5) sec INR (<1.2) APTT (22.0-30.0) sec Sodium 130 L (137-145) mmol/L Potassium 4.3 (3.5-5.1) mmol/L Chloride 100 (98-107) mmol/L Carbon Dioxide 20 L (22-30) mmol/L Anion Gap 10 mmol/L BUN 26 H (9-20) mg/dL Creatinine 1.63 H (0.66-1.25) mg/dL Est GFR (CKD-EPI)AfAm 48 (>60 ml/min/1.73 sqM) Est GFR (CKD-EPI)NonAf 42 (>60 ml/min/1.73 sqM) Glucose 155 H (74-99) mg/dL POC Glucose (mg/dL) 155 H (70-110) mg/dL POC Glu Sports Trainer ID Ubaldo Miranda Calcium 8.4 (8.4-10.2) mg/dL Total Bilirubin 1.4 H (0.2-1.3) mg/dL AST 18 (17-59) U/L ALT 8 (4-49) U/L Alkaline Phosphatase 90 (38-126) U/L Creatine Kinase 194 H (55-170) U/L Troponin I (0.000-0.034) ng/mL Total Protein 6.2 L (6.3-8.2) g/dL Albumin 3.4 L (3.5-5.0) g/dL Urine Color Urine Appearance (Clear) Urine pH (5.0-8.0) Ur Specific [place] (1.001-1.035) Urine Protein (Negative) Urine Glucose (UA) (Negative) Urine Ketones (Negative) Urine Blood (Negative) Urine Nitrite (Negative) Urine Bilirubin (Negative) Urine Urobilinogen (<2.0) mg/dL Ur Leukocyte Esterase (Negative) Urine RBC (0-5) /hpf Urine WBC (0-5) /hpf Urine WBC Clumps (None) /hpf Urine Mucus (None) /hpf 03/24/24 03/24/24 03/24/24 Range/Units 20:14 21:12 21:34 WBC (3.8-10.6) k/uL RBC (4.30-5.90) m/uL Hgb (13.0-17.5) gm/dL Hct (39.0-53.0) % MCV (80.0-100.0) fL MCH (25.0-35.0) pg MCHC (31.0-37.0) g/dL RDW (11.5-15.5) % Plt Count (150-450) k/uL MPV Neutrophils % % Lymphocytes % % Monocytes % % Eosinophils % % Basophils % % Neutrophils # (1.3-7.7) k/uL Lymphocytes # (1.0-4.8) k/uL Monocytes # (0-1.0) k/uL Eosinophils # (0-0.7) k/uL Basophils # (0-0.2) k/uL PT 10.7 (10.0-12.5) sec INR 1.0 (<1.2) APTT 20.2 L (22.0-30.0) sec Sodium (137-145) mmol/L Potassium (3.5-5.1) mmol/L Chloride (98-107) mmol/L Carbon Dioxide (22-30) mmol/L Anion Gap mmol/L BUN (9-20) mg/dL Creatinine (0.66-1.25) mg/dL Est GFR (CKD-EPI)AfAm (>60 ml/min/1.73 sqM) Est GFR (CKD-EPI)NonAf (>60 ml/min/1.73 sqM) Glucose (74-99) mg/dL POC Glucose (mg/dL) (70-110) mg/dL POC Glu Sports Trainer ID Calcium (8.4-10.2) mg/dL Total Bilirubin (0.2-1.3) mg/dL AST (17-59) U/L ALT (4-49) U/L Alkaline Phosphatase (38-126) U/L Creatine Kinase (55-170) U/L Troponin I 0.017 (0.000-0.034) ng/mL Total Protein (6.3-8.2) g/dL Albumin (3.5-5.0) g/dL Urine Color Colorless Urine Appearance Cloudy (Clear) Urine pH 5.5 (5.0-8.0) Ur Specific [place] 1.026 (1.001-1.035) Urine Protein Trace H (Negative) Urine Glucose (UA) Trace H (Negative) Urine Ketones Negative (Negative) Urine Blood Small H (Negative) Urine Nitrite Negative (Negative) Urine Bilirubin Negative (Negative) Urine Urobilinogen <2.0 (<2.0) mg/dL Ur Leukocyte Esterase Large H (Negative) Urine RBC 13 H (0-5) /hpf Urine WBC >182 H (0-5) /hpf Urine WBC Clumps Few H (None) /hpf Urine Mucus Rare H (None) /hpf - Medical Decision Making Was pt. sent in by a medical professional or institution (, PA, EQUIPMENT OPERATOR/LABORER/SUPERVISOR, urgent care, hospital, or skilled nursing...) When possible be specific @ -No Did you speak to anyone other than the patient for history (EMS, parent, family, police, friend...)? What history was obtained from this source @ -Spoke with EMS for history as well as the patient's daughter who was with him at home Did you review nursing and triage notes (agree or disagree)? Why? @ -I reviewed and agree with nursing and triage notes Were old charts reviewed (outside hosp., previous admission, EMS record, old EKG, old radiological studies, urgent care reports/EKG's, skilled nursing records)? Report findings @ -No old charts were reviewed Differential Diagnosis (chest pain, altered mental status, abdominal pain women, abdominal pain men, vaginal bleeding, weakness, fever, dyspnea, syncope, headache, dizziness, GI bleed, back pain, seizure, CVA, palpatations, mental health, musculoskeletal)? @ -Differential CVA Ischemic stroke, hemorrhagic stroke, brain tumor, atypical migraine, Wernicke's encephalopathy, seizure, multiple sclerosis, meningitis, encephalitis, hypoglycemia, Guillain-Cruz, electrolytes disturbance, myasthenia gravis.... This is not meant to be an all-inclusive list EKG interpreted by me (3pts min.). @ -Yes and demonstrates A-fib with a rate of 115. QRS 94. QTc of 424. No acute ST segment elevations or depressions X-rays interpreted by me (1pt min.). @ -Yes and demonstrates no acute process CT interpreted by me (1pt min.). @ -Yes and demonstrates no acute process U/S interpreted by me (1pt. min.). @ -None done What testing was considered but not performed or refused? (CT, X-rays, U/S, labs)? Why? @ -None What meds were considered but not given or refused? Why? @ -TNKase was considered however daughter refused who is his next of kin Did you discuss the management of the patient with other professionals (professionals i.e. , PA, EQUIPMENT OPERATOR/LABORER/SUPERVISOR, lab, RT, psych nurse, outreach and education social worker, assistant refinery operator, teacher, community service officer coordinator, piano case maker)? Give summary @ -Discussed the case with the neurointensivist on-call, Dr. Mitchell. Spoke with Dr. Merida will admit the patient Was smoking cessation discussed for >3mins.? @ -No Was critical care preformed (if so, how long)? @ -yeS, 35 minutes for code stroke management Were there social determinants of health that impacted care today? How? (Homelessness, low income, unemployed, alcoholism, drug addiction, transportation, low edu. Level, literacy, decrease access to med. care, retirement, rehab)? @ -No Was there de-escalation of care discussed even if they declined (Discuss DNR or withdrawal of care, Hospice)? DNR status @ -Yes, daughter would like to make the patient palliative versus hospice care What co-morbidities impacted this encounter? (DM, HTN, Smoking, COPD, CAD, Cancer, CVA, ARF, Chemo, Hep., AIDS, mental health diagnosis, sleep apnea, morbid obesity)? @ -Suspected dementia, A-fib Was patient admitted / discharged? Hospital course, mention meds given and route, prescriptions, significant lab abnormalities, going to OR and other pertinent info. @ -Upon arrival patient was seen and evaluated in trauma 4. Thorough history and physical exam was performed. NIH is assessed. Code thrombolytic is activat ed. Patient is sent for CT. Upon return the TNKase is discussed with the daughter who refuses this medication. States that she does not want any aggressive measures. States that the patient has had significant health decline. Would like to go palliative versus hospice care. Patient was given an aspirin. Will be admitted to Dr. Reddy who accepted admission Undiagnosed new problem with uncertain prognosis? @ -yes Drug Therapy requiring intensive monitoring for toxicity (Heparin, Nitro, I nsulin, Cardizem)? @ -No Were any procedures done? @ -No Diagnosis/symptom? @ -acute encephalopathy, acute right sided weakness, suspected cva Acute, or Chronic, or Acute on Chronic? @ -acute Uncomplicated (without systemic symptoms) or Complicated (systemic symptoms)? @ -complicated Side effects of treatment? @ -No Exacerbation, Progression, or Severe Exacerbation? @ -No Poses a threat to life or bodily function? How? (Chest pain, USA, MT, pneumonia, PE, COPD, DKA, ARF, appy, cholecystitis, CVA, Diverticulitis, Homicidal, Suicidal, threat to staff... 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 Past Anesthesia/Blood Transfusion Reactions: No Reported Reaction Past Psychological History: No Psychological Hx Reported, Anxiety Past Alcohol Use History: None Reported Past Drug Use History: None Reported - Past Family History Father Family Medical History: Cancer Additional Family Medical History / Comment(s): Father had stomach cancer with mets which he of at age 62 yrs. Mother Family Medical History: Cancer, COPD Additional Family Medical History / Comment(s): Mother at age 74 yrs after a hip fracture complicated by her COPD. She had had breast cancer. Course Vital Signs 03/24/24 03/24/24 03/24/24 20:05 22:05 23:31 Temperature 98.1 F Pulse Rate 120 H 121 H 101 H Respiratory 20 18 18 Rate Blood Pressure 177/136 151/107 159/122 O2 Sat by Pulse 92 L 97 96 Oximetry 03/25/24 03/25/24 03/25/24 03:00 06:00 07:23 Temperature Pulse Rate 107 H 88 96 Respiratory 18 18 18 Rate Blood Pressure 158/99 167/120 169/115 O2 Sat by Pulse 96 96 96 Oximetry 03/25/24 03/25/24 12:11 17:44 Temperature 100.6 F H Pulse Rate 105 H 89 Respiratory 16 16 Rate Blood Pressure 162/119 129/103 O2 Sat by Pulse 98 100 Oximetry - Reevaluation(s) Reevaluation #1: family states no to tnkase 03/24/24 20:15 Disposition Clinical Impression: Acute encephalopathy, Cerebrovascular accident (CVA), ARF (acute renal failure), Afib Disposition: ADMITTED IP TO THIS [facility] Condition: Poor Is patient prescribed a controlled substance at d/c from ED?: No Time of Disposition: 21:39 Decision to Admit Reason: Admit from EC Decision Date: 03/24/24 Decision Time: 21:39
[2024-03-24 20:36] LABS: Basophils % (A) 0 %; Eosinophils % (A) 1 %; HCT 37.1 % (39.0-53.0); HGB 12.2 gm/dL (13.0-17.5); Lymphocytes # (A) 0.4 k/uL (1.0-4.8); Lymphocytes % (A) 6 %; MCH 30.3 pg (25.0-35.0); MCHC 32.9 g/dL (31.0-37.0); MCV 92.1 fL (80.0-100.0); Mean Platelet Volume 7.8; Monocytes # (A) 0.4 k/uL (0-1.0); Monocytes % (A) 6 %; Neutrophils % (A) 87 %; Platelet Count 194 k/uL (150-450); RBC 4.03 m/uL (4.30-5.90); RDW 14.8 % (11.5-15.5); WBC 6.9 k/uL (3.8-10.6)
--- NOTE | 2024-03-24 20:36 | CT ---
EXAMINATION TYPE: CT angio head neck DATE OF EXAM: 03/24/2024 HISTORY: code stroke, unable to speak or raise legs. COMPARISON: CT Brain without contrast 03/24/2024 CT DLP: 476.7 mGycm. Automated Exposure Control for Dose Reduction was Utilized. TECHNIQUE: CTA scan of the head and neck is performed with IV Contrast, patient injected with 65ml mL of Isovue 370, axial images are obtained, coronal and sagittal reformatted images are reviewed. 3D r econstructed images are created on an independent workstation and reviewed. FINDINGS: CTA Neck: The bilateral carotid and vertebral arterial systems are widely patent without evidence of dissection, stenosis, or other pathology. Venous structures or widely patent. No significant extravas cular incidental findings. CT Brain: The anterior and posterior arterial circulations are widely patent, without evidence of ane urysm, stenosis, dissection, or other pathology. The dural venous sinuses are widely patent. No extra vascular incidental findings. IMPRESSION: No significant abnormality is seen. NASCET criteria was used in interpretation of this exam?
[2024-03-24 20:40] LABS: ALT 8 U/L (4-49); AST 18 U/L (17-59); African American GFR (CKD) 48 (>60 ml/min/1.73 sqM); Albumin 3.4 g/dL (3.5-5.0); Alkaline Phosphatase 90 U/L (38-126); Blood Urea Nitrogen 26 mg/dL (9-20); Calcium 8.4 mg/dL (8.4-10.2); Carbon Dioxide 20 mmol/L (22-30); Chloride 100 mmol/L (98-107); Creatine Kinase 194 U/L (55-170); Glucose 155 mg/dL (74-99); Non-African American GFR(CKD) 42 (>60 ml/min/1.73 sqM); Total Bilirubin 1.4 mg/dL (0.2-1.3); Total Protein 6.2 g/dL (6.3-8.2)
[2024-03-24 20:56] LABS: Anion Gap 10 mmol/L; Potassium 4.3 mmol/L (3.5-5.1); Sodium 130 mmol/L (137-145)
[2024-03-24 21:38] LABS: Prothrombin Time 10.7 sec (10.0-12.5)
[2024-03-24 21:39] LABS: Partial Thromboplastin Time 20.2 sec (22.0-30.0)
[2024-03-24] MEDS ORDERED: NALOXONE 0.4 MG/ML 1 ML VIAL IV PRN (21:39)
--- NOTE | 2024-03-24 21:49 | XR ---
EXAMINATION: XR chest 2V: 03/24/2024 9:03 PM CLINICAL INDICATION: altered mental status TECHNIQUE: Departmental protocol COMPARISON: 10/09/2018 FINDINGS: The lungs are clear. The pleural spaces are negative. The cardiac silhouette appears enlarged, unchanged. Aortic ectasia redemonstrated, unchanged. The skeletal structures and soft tissues are negative for acute findings. IMPRESSION: No acute radiographic process.
[2024-03-24 21:54] LABS: Appearance,Urine Cloudy (Clear); Bilirubin,Urine Negative (Negative); Blood,Urine Small (Negative); Color,Urine Colorless; Glucose,Urine (UA) Trace (Negative); Ketones,Urine Negative (Negative); Leukocyte Esterase,Urine Large (Negative); Mucus,Urine Rare /hpf; Nitrite,Urine Negative (Negative); PH, Urine 5.5 (5.0-8.0); Protein,Urine Trace (Negative); RBC,Urine 13 /hpf (0-5); Specific Gravity,Urine 1.026 (1.001-1.035); Urobilinogen,Urine <2.0 mg/dL (<2.0); WBC,Urine >182 /hpf (0-5)
[2024-03-24] MEDS: ATORVASTATIN 40 MG TAB PO SCH (22:11)
[2024-03-24] MEDS: ASPIRIN 325 MG TAB PO STA (22:11)
[2024-03-24] MEDS: cefTRIAXone IN SWFI 1,000 MG/10 ML SYRINGE IVP STA (23:22)
[2024-03-25] MEDS: ASPIRIN 325 MG TAB PO SCH (10:01)
[2024-03-25 11:06] LABS: African American GFR (CKD) 51 (>60 ml/min/1.73 sqM); Anion Gap 7 mmol/L; Blood Urea Nitrogen 27 mg/dL (9-20); Calcium 9.3 mg/dL (8.4-10.2); Carbon Dioxide 27 mmol/L (22-30); Chloride 100 mmol/L (98-107); Glucose 112 mg/dL (74-99); Non-African American GFR(CKD) 44 (>60 ml/min/1.73 sqM); Potassium 4.4 mmol/L (3.5-5.1); Sodium 134 mmol/L (137-145)
[2024-03-25 11:08] LABS: Basophils % (A) 0 %; Eosinophils % (A) 0 %; HCT 39.4 % (39.0-53.0); HGB 13.2 gm/dL (13.0-17.5); Lymphocytes # (A) 0.5 k/uL (1.0-4.8); Lymphocytes % (A) 6 %; MCHC 33.4 g/dL (31.0-37.0); Mean Platelet Volume 7.5; Monocytes # (A) 0.3 k/uL (0-1.0); Monocytes % (A) 4 %; Neutrophils # (A) 7.3 k/uL (1.3-7.7); Neutrophils % (A) 89 %; Platelet Count 211 k/uL (150-450); RBC 4.24 m/uL (4.30-5.90); RDW 14.5 % (11.5-15.5); WBC 8.1 k/uL (3.8-10.6)
[2024-03-25] MEDS: ENOXAPARIN 40 MG/0.4 ML SYRINGE SQ SCH (11:50)
[2024-03-25] MEDS: METOPROLOL TARTRATE 25 MG TAB PO SCH (11:51)
--- NOTE | 2024-03-25 15:51 | P.HPIM ---
History of Present Illness H&P Date: 03/25/24 Chief Complaint: Altered mental status This is a 73-year-old patient, history is obtained by the daughter. Massiel Bauer. Patient will be staying with her daughter for about 4 years. At baseline he uses a four-wheel walker. She does make some meals for him. He has dementia. About 6 years ago patient decided to stop taking his medications. In which included metformin. Patient lost weight. Has never taken medications. Subsequently patient was last seen normal at 7:15 PM yesterday. Patient said patient had gone to the bathroom. When she came back to check on her and 50 minutes later she found him unresponsive. Patient had previous TIAs. EKG showed atrial fibrillation. Patient does not take any medications including no blood thinners. Daughter had been not giving him any more medications as per patient's decisions when he could take decisions. Patient in the ER can only speak slowly. Not really will give me much of a history himself. Review of systems: Patient not really able to answer questions Social history: Patient lives at [facility]. Has a four-wheel walker. Physical examination: VITAL SIGNS: 98.1, 120, 20, 177 x 136, 92% on 2 L upon presentation GENERAL: BMI 26.6, laying in bed a bit tired. EYES: Pupils equal. Conjunctiva janina l. HEENT: External appearance of nose and ears normal, oral cavity grossly normal. NECK: JVD not raised; masses not palpable. HEART: Heart sounds are regular; no edema. LUNGS: Respiratory rate normal; clear to auscultation. ABDOMEN: Soft, nontender, liver spleen not palpable, no masses palpable. PSYCH: Will answer some questions slowly l. MUSCULOSKELETAL:No Clubbing/cyanosis;muscles-grossly intact. OA NEUROLOGICAL: Cranial nerves grossly intact; no facial asymmetry, speech is very slow. Does move his limbs. LYMPHATICS: No lymph nodes palpable in the axilla and neck INVESTIGATIONS, reviewed in the clinical context: March 25, 2024: White count 8.1 hemoglobin 13.2 platelets 211 sodium 134 potassium 4.4 BUN 27 creatinine 1.57 UA: Positive for leukoesterase, WBC EKG tracing personally reviewed by me-atrial fibrillation. Rate 115 Chest x-ray film personally reviewed by me-cardiomegaly. Unfolding of the aorta CT angiogram head and neck: Unremarkable Assessment plan: -Probable acute stroke could be in the brainstem. As affecting sensorium. Patient's daughter does not want any further testing. Hence will not do MRI etc. Will treat empirical aspirin, Lipitor. She really wants to be conservative. Discussed with neurology. -Possible UTI could be contributing to encephalopathy IV ceftriaxone -Essential hypertension, accelerated. Patient stopped taking medications a few years ago. Again have discussed with daughter. Agreeable to start blood pressure medications. -Severe cognitive impairment -Chronic gait dysfunction at the baseline was using a four-wheel walker PT OT -Persistent atrial fibrillation. Has a long history of the same. Stopped taking medications of 6 years ago. Because of risk of falls no anticoagulation as discussed with the daughter. -DNR Advance care planning: [March 25, 2024] Care was discussed with patient's daughter Massiel Bauer. Lengthy discussion about medications and disposition. She is unable to further take care of the patient herself. Will look at placement. Consider rehab. If no significant improvement even hospice will be a consideration. humidifier maintenance worker will be consulted. They can further take it from there. 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 Past Anesthesia/Blood Transfusion Reactions: No Reported Reaction Past Psychological History: No Psychological Hx Reported, Anxiety Past Alcohol Use History: None Reported Past Drug Use History: None Reported - Past Family History Father Family Medical History: Cancer Additional Family Medical History / Comment(s): Father had stomach cancer with mets which he of at age 62 yrs. Mother Family Medical History: Cancer, COPD Additional Family Medical History / Comment(s): Mother at age 74 yrs after a hip fracture complicated by her COPD. She had had breast cancer. Medications and Allergies Home Medications Medication Instructions Recorded Confirmed Type No Known Home Medications 03/24/24 03/24/24 History Allergies Allergy/AdvReac Type Severity Reaction Status Date / Time No Known Allergies Allergy Verified 03/24/24 20:37 Physical Exam Vitals: Vital Signs Temp Pulse Resp BP Pulse Ox 03/25/24 07:23 96 18 169/115 96 03/25/24 06:00 88 18 167/120 96 03/25/24 03:00 107 H 18 158/99 96 03/24/24 23:31 101 H 18 159/122 96 03/24/24 22:05 121 H 18 151/107 97 03/24/24 20:05 98.1 F 120 H 20 177/136 92 L Intake and Output 03/24/24 03/25/24 03/25/24 22:59 06:59 14:59 Other: Weight 81.647 kg Results CBC & Chem 7: 03/25/24 10:09 03/25/24 10:09 Labs: Abnormal Lab Results - Last 24 Hours (Table) 03/24/24 03/24/24 03/24/24 Range/Units 20:11 20:14 20:14 RBC 4.03 L (4.30-5.90) m/uL Hgb 12.2 L (13.0-17.5) gm/dL Hct 37.1 L (39.0-53.0) % Lymphocytes # 0.4 L (1.0-4.8) k/uL APTT (22.0-30.0) sec Sodium 130 L (137-145) mmol/L Carbon Dioxide 20 L (22-30) mmol/L BUN 26 H (9-20) mg/dL Creatinine 1.63 H (0.66-1.25) mg/dL Glucose 155 H (74-99) mg/dL POC Glucose (mg/dL) 155 H (70-110) mg/dL Total Bilirubin 1.4 H (0.2-1.3) mg/dL Creatine Kinase 194 H (55-170) U/L Total Protein 6.2 L (6.3-8.2) g/dL Albumin 3.4 L (3.5-5.0) g/dL Urine Protein (Negative) Urine Glucose (UA) (Negative) Urine Blood (Negative) Ur Leukocyte Esterase (Negative) Urine RBC (0-5) /hpf Urine WBC (0-5) /hpf Urine WBC Clumps (None) /hpf Urine Mucus (None) /hpf 03/24/24 03/24/24 Range/Units 21:12 21:34 RBC (4.30-5.90) m/uL Hgb (13.0-17.5) gm/dL Hct (39.0-53.0) % Lymphocytes # (1.0-4.8) k/uL APTT 20.2 L (22.0-30.0) sec Sodium (137-145) mmol/L Carbon Dioxide (22-30) mmol/L BUN (9-20) mg/dL Creatinine (0.66-1.25) mg/dL Glucose (74-99) mg/dL POC Glucose (mg/dL) (70-110) mg/dL Total Bilirubin (0.2-1.3) mg/dL Creatine Kinase (55-170) U/L Total Protein (6.3-8.2) g/dL Albumin (3.5-5.0) g/dL Urine Protein Trace H (Negative) Urine Glucose (UA) Trace H (Negative) Urine Blood Small H (Negative) Ur Leukocyte Esterase Large H (Negative) Urine RBC 13 H (0-5) /hpf Urine WBC >182 H (0-5) /hpf Urine WBC Clumps Few H (None) /hpf Urine Mucus Rare H (None) /hpf
[2024-03-25 15:59] LABS: Chol/HDL Ratio 2.46 Ratio; LDL Cholesterol,Calculated 70.3 mg/dL (0.0-131.0)
[2024-03-25] MEDS: ACETAMINOPHEN TAB 500 MG TAB PO PRN (19:45)
[2024-03-25 20:12] LABS: Glucose,Whole Blood 109 mg/dL (70-110)
[2024-03-26 06:27] LABS: Glucose,Whole Blood 92 mg/dL (70-110)
--- NOTE | 2024-03-26 11:34 | P.CNNES ---
History of Present Illness Consult date: 03/25/24 Requesting physician: Vivian Ugalde Reason for Consult: Acute CVA History of Present Illness: Patient is a 73-year-old male with history of hypertension, diabetes, atrial fibrillation, currently not taking any medications, noncompliant, came to the hospital by ambulance yesterday at 7:51 PM for strokelike symptoms. Patient not able to provide much history. I spoke to patient's daughter Massiel, who is his po wer of state attorney and he lives with her, who mentions that yesterday he was not responding, very slow, could not get out of bed, was very significantly incontinent, as the bed was completely soaked with urine. He does have some baseline incontinence but yesterday was worse. When he stood up, he was leaning backwards on her arm. He could not stand was not responding and his eyes were closed. She did not notice any facial droop. Due to these symptoms, she called the ambulance. As per EMS flowsheet when they arrived patient was sitting on the toilet, upstairs in his apartment with daughter present. Patient presented with unresponsiveness with prominent leftward gaze. Patient's daughter mentioned that he was last seen normal at about 715 this evening. Patient daughter mentions that he had to go to bathroom, when she came to check on him 15 minutes later, she found him unresponsive. Daughter confirms patient has history of previous TIA. Patient takes no prescribed medication. Patient was noted to have right-sided deficits with a fast ED of 7. EKG revealed atrial fibrillation. Blood glucose 151. Vital signs was blood pressure 171/109, pulse rate 89, saturation 99%. CT head showed no acute process. I personally reviewed CT head, and agree with the findings. There is significant generalized atrophy, with significant confluent, periventricular and subcortical white matter disease noted bilaterally. Evidence of some pontine calcification bilaterally. EKG shows atrial fibrillation with rapid ventricular rate. Chest x-ray showed no acute radiographic process. Patient's daughter mentions that he has history of mini strokes in the last 3 years. Patient at present denies any headache, or any pain anywhere. Patient is completely noncompliant with his medication or following up with the doctors. She mentions that he gets episodes of TIA, when he gets weak and then he becomes fine. He does not want to go to the hospital each time. She states that he has no quality of life, does not do anything, stays home. She states that he has never been fully diagnosed with dementia. He has not seen a doctor for about 7 years. He stopped taking medication 6 years ago. He has been losing weight, does not drive. He still recognizes all family members. Although sometimes he mixes up and called his daughter with his 's name although he knows who she is. The last few months he has been getting worse. He walks with four-wheel walker. Patient takes no medication at home. He is a non-smoker. Patient has hypertension, diabetes, has atrial fibrillation, used to be on Coumadin but stopped taking it several years ago. He does not take even any antiplatelet medication. Review of Systems Eyes: denies blurred vision, denies decreased vision, denies pain, denies loss of vision Ears, nose, mouth and throat: Denies headache Cardiovascular: Denies chest pain, Denies lightheadedness, Denies shortness of breath Respiratory: Denies congestion, Denies excessive sputum Gastrointestinal: Denies abdominal pain, Denies diarrhea, Denies nausea, Denies vomiting Musculoskeletal: Denies low back pain, Denies neck pain Integumentary: Denies pruritus, Denies rash Neurological: Reports as per HPI Psychiatric: Denies anxiety, Denies depression Past Medical History Past Medical History: Atrial Fibrillation, Heart Failure, Diabetes Mellitus, Hypertension, Vascular Disorder Additional Past Medical History / Comment(s): Cardiomyopathy, NIDDM type II, past L lower leg venous statsis ulcer, 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 Past Anesthesia/Blood Transfusion Reactions: No Reported Reaction Past Psychological History: No Psychological Hx Reported, Anxiety Past Alcohol Use History: None Reported Past Drug Use History: None Reported - Past Family History Father Family Medical History: Cancer Additional Family Medical History / Comment(s): Father had stomach cancer with mets which he of at age 62 yrs. Mother Family Medical History: Cancer, COPD Additional Family Medical History / Comment(s): Mother at age 74 yrs after a hip fracture complicated by her COPD. She had had breast cancer. Medications and Allergies Home Medications Medication Instructions Recorded Confirmed Type No Known Home Medications 03/24/24 03/24/24 History Allergies Allergy/AdvReac Type Severity Reaction Status Date / Time No Known Allergies Allergy Verified 03/24/24 20:37 Physical Examination - Vital Signs Vital Signs: Vital Signs Temp Pulse Resp BP Pulse Ox 03/25/24 12:11 105 H 16 162/119 98 03/25/24 07:23 96 18 169/115 96 03/25/24 06:00 88 18 167/120 96 03/25/24 03:00 107 H 18 158/99 96 03/24/24 23:31 101 H 18 159/122 96 03/24/24 22:05 121 H 18 151/107 97 03/24/24 20:05 98.1 F 120 H 20 177/136 92 L Patient is an elderly male, who is laying in the bed, in no discomfort, but he appears somewhat anxious, worried look. Patient is alert awake. He knows his name and that he was born on [birth year], but could not tell the year. He knows he is in the [place], but does not know the state. He often sees "no I do not". Sometimes he speaks clear phrases, but other times he appears to have some aphasia. He could not name any objects, but when I presented glasses, he says "my glasses". He was not able to name pen or knuckles. He can repeat very well. He speaks fairly clearly, although very low volume. Sometimes there is some slurring noticed. Attention, concentration is significantly decreased and fund of knowledge is very limited. Detailed cognitive function testing deferred. On cranial nerve examination, pupils are equal, round and reacting to light, visual omer could not be tested reliably, although he was at times pointing to the correct side of finger movement, probable normal visual field. Extraocular muscles are intact with no nystagmus. Face is symmetric, tongue protrudes to the midline. Palatal elevation and sensation normal, hearing appears decreased and shoulder shrug normal, facial sensation normal. On muscle strength testing, patient would not cooperate for pronator drift. Muscle strength is (right/left) supervisor laboratory 5/5, biceps 5/5, triceps 5/5, deltoid 3+/3+, but he was not giving full effort it appears. Hip flexion 5/4. He did not cooperate for ankle dorsiflexion. Deep tendon reflexes are symmetric 1 at the biceps, 1 brachioradialis, 2+3 at the knees, trace ankles and plantars upgoing bilaterally. Sensory to touch is equal did not cooperate. Cerebellar function patient did not cooperate. Tone and bulk of muscles normal. Gait deferred.. On general examination, there is no carotid bruit or murmur, S1-S2 audible. Chest is clear on consultation. Abdomen is soft nontender. No organomegaly, bowel sounds present. Peripheral pulses are present. No peripheral edema. Results - Laboratory Findings CBC and BMP: 03/25/24 10:09 03/25/24 10:09 Abnormal Lab Findings: Abnormal Labs 03/24/24 03/24/24 03/24/24 20:11 20:14 20:14 RBC 4.03 L Hgb 12.2 L Hct 37.1 L Lymphocytes # 0.4 L APTT Sodium 130 L Carbon Dioxide 20 L BUN 26 H Creatinine 1.63 H Glucose 155 H POC Glucose (mg/dL) 155 H Total Bilirubin 1.4 H Creatine Kinase 194 H Total Protein 6.2 L Albumin 3.4 L Urine Protein Urine Glucose (UA) Urine Blood Ur Leukocyte Esterase Urine RBC Urine WBC Urine WBC Clumps Urine Mucus 03/24/24 03/24/24 03/25/24 21:12 21:34 10:09 RBC 4.24 L Hgb Hct Lymphocytes # 0.5 L APTT 20.2 L Sodium Carbon Dioxide BUN Creatinine Glucose POC Glucose (mg/dL) Total Bilirubin Creatine Kinase Total Protein Albumin Urine Protein Trace H Urine Glucose (UA) Trace H Urine Blood Small H Ur Leukocyte Esterase Large H Urine RBC 13 H Urine WBC >182 H Urine WBC Clumps Few H Urine Mucus Rare H 03/25/24 10:09 RBC Hgb Hct Lymphocytes # APTT Sodium 134 L Carbon Dioxide BUN 27 H Creatinine 1.57 H Glucose 112 H POC Glucose (mg/dL) Total Bilirubin Creatine Kinase Total Protein Albumin Urine Protein Urine Glucose (UA) Urine Blood Ur Leukocyte Esterase Urine RBC Urine WBC Urine WBC Clumps Urine Mucus Assessment and Plan Assessment: * Probable acute ischemic stroke manifesting with some speech difficulty/aphasia. * Altered mental status, possible metabolic encephalopathy due to other conditions. * Probable dementia, moderate to severe degree. * Acute UTI * Hypertension, uncontrolled * Diabetes * History of chronic atrial fibrillation, untreated * Medication noncompliance. Patient has not seen doctors for 7 years, not on any medical treatment. Plan: * Discussed with patient's daughter in detail. She does not want any aggressive treatment. She states that patient has no quality of life, does not follow-up with the medical treatment or follow-up with her doctors. He probably has dementia, but never formally diagnosed. She wants conservative management, and is considering hospice. * Agree with starting aspirin 325 mg and Lipitor 40 mg. * Patient on ceftriaxone for acute UTI. * CTA of head and neck revealed no significant abnormality * Lipid panel with cholesterol 138, LDL 70, HDL 56, triglycerides 58. * Treatment of blood pressure as per IM. * Neurology will sign off. Please reconsult neurology if any questions. * Thank you for the consult.
[2024-03-26 11:37] LABS: Glucose,Whole Blood 94 mg/dL (70-110)
[2024-03-26] MEDS: SODIUM CHLORIDE 0.9% 1,000 ML IV SCH (15:57)
[2024-03-26 16:22] LABS: Glucose,Whole Blood 121 mg/dL (70-110)
--- NOTE | 2024-03-26 18:28 | P.PN ---
Subjective Progress Note Date: 03/26/24 This is a 73-year-old patient, history is obtained by the daughter. Massiel Bauer. Patient will be staying with her daughter for about 4 years. At baseline he uses a four-wheel walker. She does make some meals for him. He has dementia. About 6 years ago patient decided to stop taking his medications. In which included metformin. Patient lost weight. Has never taken medications. Subsequently patient was last seen normal at 7:15 PM yesterday. Patient said patient had gone to the bathroom. When she came back to check on her and 50 minutes later she found him unresponsive. Patient had previous TIAs. EKG showed atrial fibrillation. Patient does not take any medications including no blood thinners. Daughter had been not giving him any more medications as per patient's decisions when he could take decisions. Patient in the ER can only speak slowly. Not really will give me much of a hi story himself. 03/26/2024 Patient is seen in follow-up today appears lethargic, mentation at baseline and likely has dementia and per family is noncompliant with treatment. There was concerns of encephalopathy with UTI although urine culture showing normal carmen the patient has received antibiotics in the form of ceftriaxone and will discontinue. Patient appears volume depleted on exam with significant muscle wasting and overall ill-appearing noted. Will obtain BMP and give gentle hydration. Patient's oral intake is poor and needs assistance with meals. Neurology has evaluated the patient with no further recommendations noted. Review of systems: Patient not really able to answer questions Physical examination: GENERAL: This is a 73-year-old male who is awake although confused, baseline alert x 1-2, ill-appearing, elderly appearing, muscle wasting noted EYES: Pupils equal. Conjunctiva normal. HEENT: External appearance of nose and ears normal, oral cavity grossly normal. NECK: JVD not raised; masses not palpable. HEART: Heart sounds are regular; no edema. LUNGS: Respiratory rate normal; diminished breath sounds bilaterally otherwise clear to auscultation. ABDOMEN: Soft, nontender, thin, no masses palpable. MUSCULOSKELETAL:No Clubbing/cyanosis;muscles-grossly intact. OA noted NEUROLOGICAL: Cranial nerves grossly intact; no facial asymmetry, speech is very slow. Does move his limbs. Assessment: -Probable acute stroke could be in the brainstem. As affecting sensorium. Per family, does not want further testing and considering possible hospice, refusing MRI Will treat empirical aspirin, Lipitor. She really wants to be conservative. Discussed with neurology. -Possible UTI could be contributing to encephalopathy, ruled out, urine culture showing normal carmen, antibiotics discontinued -Essential hypertension, accelerated. Uncontrolled and noncompliant with medications. Patient has not seen a provider in 7 years and does not take medications, blood pressure control being started -Severe cognitive impairment, likely dementia although never diagnosed -Chronic gait dysfunction at the baseline was using a four-wheel walker, recommend PT/OT therapy evaluation, possible ECF -Persistent atrial fibrillation. Has a long history of the same. Stopped taking medications of 6 years ago. Because of risk of falls no anticoagulation as discussed with the daughter. -DNR Plan: Care was discussed with patient's daughter Massiel Bauer. Lengthy discussion about medications and disposition. She is unable to further take care of the patient herself. Will look at placement. Consider rehab. If no significant improvement even hospice will be a consideration. boiler plant worker will be consulted. Urology has evaluated with no further treatment noted other than aspirin and statin therapy Patient appears slightly volume depleted although BNP is 4980, will give gentle hydration and follow-up on repeat labs and monitor overnight. Encouraged oral intake Will discuss further with case management/social work on Thursday regarding discharge planning Overall prognosis is poor and guarded The impression and plan of care has been dictated by Brii Gonzalez, Nurse Practitioner as directed. Dr. Maren MD I have performed a history and examination and MDM of this patient, discussed the same with the dictator, and agree with the dictator's assessment and plan as written ,documented as a scribe. Based on total visit time, I have performed more than 50% of the visit. Objective - Vital Signs Vital signs: Vital Signs Temp 97.7 F 03/26/24 08:04 Pulse 96 03/26/24 08:04 Resp 16 03/26/24 08:04 BP 169/104 03/26/24 08:04 Pulse Ox 100 03/26/24 08:04 FiO2 Intake & Output 03/25/24 03/26/24 03/26/24 18:59 06:59 18:59 Output Total 300 Balance -300 Weight 81.647 kg Output: Urine 300 Other: Voiding Method External Catheter External Catheter - Labs CBC & Chem 7: 03/25/24 10:09 03/25/24 10:09 Labs: Abnormal Lab Results - Last 24 Hours (Table) 03/25/24 03/25/24 Range/Units 10:09 10:09 RBC 4.24 L (4.30-5.90) m/uL Lymphocytes # 0.5 L (1.0-4.8) k/uL Sodium 134 L (137-145) mmol/L BUN 27 H (9-20) mg/dL Creatinine 1.57 H (0.66-1.25) mg/dL Glucose 112 H (74-99) mg/dL Microbiology - Last 24 Hours (Table) 03/24/24 21:34 Urine Culture - Final Urine,Voided
[2024-03-26 20:37] LABS: Glucose,Whole Blood 92 mg/dL (70-110)
[2024-03-27 06:17] LABS: Glucose,Whole Blood 84 mg/dL (70-110)
[2024-03-27 07:55] LABS: ALT 12 U/L (4-49); AST 33 U/L (17-59); African American GFR (CKD) 57 (>60 ml/min/1.73 sqM); Albumin 2.7 g/dL (3.5-5.0); Alkaline Phosphatase 73 U/L (38-126); Anion Gap 5 mmol/L; Blood Urea Nitrogen 38 mg/dL (9-20); Carbon Dioxide 21 mmol/L (22-30); Chloride 107 mmol/L (98-107); Glucose 76 mg/dL (74-99); Magnesium 1.7 mg/dL (1.6-2.3); Non-African American GFR(CKD) 49 (>60 ml/min/1.73 sqM); Potassium 3.8 mmol/L (3.5-5.1); Sodium 133 mmol/L (137-145); Total Bilirubin 1.1 mg/dL (0.2-1.3); Total Protein 5.4 g/dL (6.3-8.2)
[2024-03-27 08:16] LABS: Basophils % (A) 0 %; Eosinophils # (A) 0.2 k/uL (0-0.7); Eosinophils % (A) 2 %; HCT 35.3 % (39.0-53.0); HGB 11.7 gm/dL (13.0-17.5); Lymphocytes # (A) 0.9 k/uL (1.0-4.8); Lymphocytes % (A) 12 %; MCH 30.5 pg (25.0-35.0); MCV 92.2 fL (80.0-100.0); Mean Platelet Volume 8.2; Monocytes # (A) 0.4 k/uL (0-1.0); Monocytes % (A) 5 %; Neutrophils % (A) 78 %; Platelet Count 158 k/uL (150-450); Poikilocytosis Slight; RBC 3.83 m/uL (4.30-5.90); RDW 15.2 % (11.5-15.5); WBC 7.7 k/uL (3.8-10.6)
[2024-03-27] MEDS ORDERED: Magnesium Replacement Protocol 1 EACH MISC MISCELLANE PRN (09:03)
[2024-03-27] MEDS: MAGNESIUM SULFATE-D5W PMX 1 GM in DEXTROSE/WATER 1 100ML.BAG IVPB ONE (10:52)
[2024-03-27] MEDS: POTASSIUM CHLORIDE ER 20 MEQ TAB.ER PO STA (10:52)
[2024-03-27 12:12] LABS: Glucose,Whole Blood 135 mg/dL (70-110)
[2024-03-27 16:33] LABS: Glucose,Whole Blood 165 mg/dL (70-110)
[2024-03-27] MEDS: POLYMYXIN B-TRIMETHOPRIM SULF (10,000-1) OPHTH DROPS 10 ML BTL BOTH EYES SCH (17:11)
--- NOTE | 2024-03-27 19:10 | P.PN ---
Subjective Progress Note Date: 03/27/24 This is a 73-year-old patient, history is obtained by the daughter. Massiel Bauer. Patient will be staying with her daughter for about 4 years. At baseline he uses a four-wheel walker. She does make some meals for him. He has dementia. About 6 years ago patient decided to stop taking his medications. In which included metformin. Patient lost weight. Has never taken medications. Subsequently patient was last seen normal at 7:15 PM yesterday. Patient said patient had gone to the bathroom. When she came back to check on her and 50 minutes later she found him unresponsive. Patient had previous TIAs. EKG showed atrial fibrillation. Patient does not take any medications including no blood thinners. Daughter had been not giving him any more medications as per patient's decisions when he could take decisions. Patient in the ER can only speak slowly. Not really will give me much of a history himself. 03/26/2024 Patient is seen in follow-up today appears lethargic, mentation at baseline and likely has dementia and per family is noncompliant with treatment. There was concerns of encephalopathy with UTI although urine culture showing normal carmen the patient has received antibiotics in the form of ceftriaxone and will discontinue. Patient appears volume depleted on exam with significant muscle wasting and overall ill-appearing noted. Will obtain BMP and give gentle hydration. Patient's oral intake is poor and needs assistance with meals. Neurology has evaluated the patient with no further recommendations noted. 03/27/2024 Patient is evaluated today in follow up. Has no acute complaints however appears fatigued. He is having some appetite family at he bedside, he is encouraged to sit up and have some lunch. His left eye is noted to have some crusting and family states they have noticed the same over the last 5 to 6 days. Family with plans to discuss hospice vs. ECF today and will follow up with social work tomorrow. Sodium 133 today, BUN 38, creatinine 1.43. Magnesium 1.7. Review of systems: Patient not really able to answer questions Physical examination: GENERAL: This is a 73-year-old male who is awake although confused, baseline alert x 1-2, ill-appearing, elderly appearing, muscle wasting noted EYES: Pupils equal. Conjunctiva normal. HEENT: External appearance of nose and ears normal, oral cavity grossly normal. NECK: JVD not raised; masses not palpable. HEART: Heart sounds are regular; no edema. LUNGS: Respiratory rate normal; diminished breath sounds bilaterally otherwise clear to auscultation. ABDOMEN: Soft, nontender, thin, no masses palpable. MUSCULOSKELETAL:No Clubbing/cyanosis;muscles-grossly intact. OA noted NEUROLOGICAL: Cranial nerves grossly intact; no facial asymmetry, speech is very slow. Does move his limbs. Assessment: -Probable acute stroke could be in the brainstem. As affecting sensorium. Per family, does not want further testing and considering possible hospice, refusing MRI Will treat empirical aspirin, Lipitor. Family wanting conservative measures and are considering hospice. No further recommendations from neurology at this time. -Possible UTI could be contributing to encephalopathy, ruled out, urine culture showing normal carmen, antibiotics discontinued -Essential hypertension, accelerated. Uncontrolled and noncompliant with medications. Patient has not seen a provider in 7 years and does not take medications, patient has been started on metoprolol with improvement in BP down to 140s systolic. -Severe cognitive impairment, likely dementia although never diagnosed -Chronic gait dysfunction at the baseline was using a four-wheel walker, recommend PT/OT therapy evaluation, possible ECF -Persistent atrial fibrillation. Has a long history of the same. Stopped taking medications of 6 years ago. Because of risk of falls no anticoagulation as discussed with the daughter. -Hypomagnesemia 1.7 due to poor diet will supplement with IV magnesium and repeat blood work in the AM. -DNR Plan: Neurology recommending to continue aspirin and plavix with no further work up indicated and family at this time is strongly considering hospice vs. ECF and will follow up with family and social work on Thursday. Patient appears slightly volume depleted although BNP is 4980, will give gentle hydration and follow-up on repeat labs and monitor overnight. Creatinine has improved although sodium worsened. Does have some mild ankle edema. Repeat blood work in AM. Encouraged oral intake Will discuss further with case management/social work on Thursday regarding discharge planning Overall prognosis is poor and guarded The impression and plan of care has been dictated by Kylah Gant, Nurse Practitioner as directed. Dr. Maren MD I have performed a history and physical examination and medical decision making of this patient, discussed the same with the dictator, and agree with the dictators assessment and plan as written, documented as a scribe. Based on total visit time, I have performed more than 50% of this visit. Objective - Vital Signs Vital signs: Vital Signs Temp 97.6 F 03/27/24 08:15 Pulse 75 03/27/24 11:00 Resp 16 03/27/24 11:00 BP 147/97 03/27/24 11:00 Pulse Ox 99 03/27/24 11:00 FiO2 Intake & Output 03/26/24 03/27/24 03/27/24 18:59 06:59 18:59 Intake Total 222 Output Total 400 500 Balance -400 -500 222 Intake: Oral 222 Output: Urine 400 500 Other: Voiding Method External Catheter External Catheter External Catheter - Labs CBC & Chem 7: 03/27/24 07:57 03/27/24 06:10 Labs: Abnormal Lab Results - Last 24 Hours (Table) 03/26/24 03/27/24 03/27/24 Range/Units 16:20 06:10 07:57 RBC 3.83 L (4.30-5.90) m/uL Hgb 11.7 L (13.0-17.5) gm/dL Hct 35.3 L (39.0-53.0) % Lymphocytes # 0.9 L (1.0-4.8) k/uL Sodium 133 L (137-145) mmol/L Carbon Dioxide 21 L (22-30) mmol/L BUN 38 H (9-20) mg/dL Creatinine 1.43 H (0.66-1.25) mg/dL POC Glucose (mg/dL) 121 H (70-110) mg/dL Calcium 8.0 L (8.4-10.2) mg/dL Total Protein 5.4 L (6.3-8.2) g/dL Albumin 2.7 L (3.5-5.0) g/dL 03/27/24 Range/Units 12:10 RBC (4.30-5.90) m/uL Hgb (13.0-17.5) gm/dL Hct (39.0-53.0) % Lymphocytes # (1.0-4.8) k/uL Sodium (137-145) mmol/L Carbon Dioxide (22-30) mmol/L BUN (9-20) mg/dL Creatinine (0.66-1.25) mg/dL POC Glucose (mg/dL) 135 H (70-110) mg/dL Calcium (8.4-10.2) mg/dL Total Protein (6.3-8.2) g/dL Albumin (3.5-5.0) g/dL Microbiology - Last 24 Hours (Table) 03/24/24 21:34 Urine Culture - Final Urine,Voided Assessment and Plan Time with Patient: Less than 30
[2024-03-27 20:12] LABS: Glucose,Whole Blood 105 mg/dL (70-110)
[2024-03-27 23:09] VITALS: RESP 18
[2024-03-28 06:19] LABS: Glucose,Whole Blood 92 mg/dL (70-110)
[2024-03-28 08:55] LABS: African American GFR (CKD) 64 (>60 ml/min/1.73 sqM); Anion Gap 6 mmol/L; Blood Urea Nitrogen 36 mg/dL (9-20); Calcium 8.2 mg/dL (8.4-10.2); Carbon Dioxide 24 mmol/L (22-30); Chloride 103 mmol/L (98-107); Glucose 113 mg/dL (74-99); Magnesium 1.9 mg/dL (1.6-2.3); Non-African American GFR(CKD) 55 (>60 ml/min/1.73 sqM); Potassium 3.8 mmol/L (3.5-5.1); Sodium 133 mmol/L (137-145)
--- NOTE | 2024-03-28 09:37 | CDI ---
Documentation Clarification Form Date: 03/28/2024 From: Gia French Phone: [phone] Admit Date: 03/24/2024 09:58:00 PM Patient Name: Chang Olmedo Visit Number: [id number] Discharge Date: ATTENTION: The Clinical Documentation Specialists (CDI) and [facility] Coding Staff appreciate your assistance in clarifying documentation. Please respond to the clarification below the line at the bottom and electronically sign. The CDI & [facility] Coding staff will review the response and follow-up if needed. Please note: Queries are made part of the Legal Health Record. If you have any questions, please contact the author of this message via ITS. PEREZ Stewart: Encephalopathy is documented in the ED note 03/24 and in subsequent documentation. Additional clarification regarding the type of encephalopathy is requested. History/Risk Factors: 73 year old male with a history of mini strokes, atrial fibrillation, DM2, HTN Cardiomyopathy who presents with stroke-like symptoms Clinical Indicators: 03/26 Neurology consult, Assessment and Plan: "Probable acute ischemic stroke manifesting with some speech difficulty/aphasia. Altered mental status, possible metabolic encephalopathy due to other conditions. Acute UTI." 03/26 IM PN, Assessment: "Possible UTI could be contributing to encephalopathy, ruled out, urine culture showing normal carmen, antibiotics discontinued. Severe cognitive impairment, likely dementia although never diagnosed." 03/24-03/28 Sodium: 130, 134, 133, 133 BUN: 26, 27, 38, 36 Creatinine: 1.63, 1.57, 1.43, 1.30 03/24 Urinalysis: Protein: Trace, Glucose: Trace, Blood: Small, Leukocyte Esterase: Large, RBC: 13, WBC: >182, WBC Clumps: Few, Mucus: Rare 03/24 Urine Culture: Apparent skin and/or genital carmen 03/24 CT Brain, Impression: No definite acute process." 03/24 CTA Head/Neck, Impression: No significant abnormality seen.' Treatment: Consult Neurology Ceftriaxone 1gram IV [id number] 03/25-03/26 Normal Saline IV 75cc/hour 03/27 Please clarify the type of encephalopathy, if known: [ ] Metabolic Encephalopathy superimposed on severe cognitive impairment [ ] Other, please specify [ x] Unable to determine MTDD
[2024-03-28 11:27] LABS: Glucose,Whole Blood 152 mg/dL (70-110)
[2024-03-28 13:27] VITALS: TEMP 96.9
[2024-03-28 15:04] VITALS: BP 126/80; PULSE 64
--- NOTE | 2024-03-31 12:22 | CDI ---
Documentation Clarification Form Date: 12:20:00 PM From: Gia French Phone: [phone] Admit Date: 03/24/2024 09:58:00 PM Patient Name: Chang Olmedo Visit Number: [id number] Discharge Date: 03/28/2024 03:05:00 PM ATTENTION: The Clinical Documentation Specialists (CDI) and [facility] Coding Staff appreciate your assistance in clarifying documentation. Please respond to the clarification below the line at the bottom and electronically sign. The CDI & [facility] Coding staff will review the response and follow-up if needed. Please note: Queries are made part of the Legal Health Record. If you have any questions, please contact the author of this message via ITS. Dr. Chaparro Godinez: Encephalopathy is documented in the ED note 03/24 and in subsequent documentation. Additional clarification regarding the type of encephalopathy is requested. History/Risk Factors: 73 yo male with a history of mini strokes, atrial fibrillation, DM2, HTN Cardiomyopathy who presents with stroke-like symptoms Clinical Indicators: 03/26 Neurology consult, Assessment and Plan: "Probable acute ischemic stroke manifesting with some speech difficulty/aphasia. Altered mental status, possible metabolic encephalopathy due to other conditions. Acute UTI." 03/26 IM PN, Assessment: "Possible UTI could be contributing to encephalopathy, ruled out, urine culture showing normal carmen, antibiotics discontinued. Severe cognitive impairment, likely dementia although never diagnosed." 03/24-03/28 Sodium: 130, 134, 133, 133 BUN: 26, 27, 38, 36 Creatinine: 1.63, 1.57, 1.43, 1.30 03/24 Urinalysis: Protein: Trace, Glucose: Trace, Blood: Small, Leukocyte Esterase: Large, RBC: 13, WBC: >182, WBC Clumps: Few, Mucus: Rare 03/24 Urine Culture: Apparent skin and/or genital carmen 03/24 CT Brain, Impression: No definite acute process." 03/24 CTA Head/Neck, Impression: No significant abnormality seen.' Treatment: Consult Neurology Ceftriaxone 1gram IV [id number] 03/25-03/26 Normal Saline IV 75cc/hour 03/27 Please clarify the type of encephalopathy, if known: [ ] Metabolic Encephalopathy superimposed on severe cognitive impairment [ x ] Other, please specify (as below) [ ] Unable to determine Probable multifactorial, including UTI, and possible due to CVA MTDD
--- NOTE | 2024-04-01 06:34 | P.DS ---
Providers Date of admission: 03/24/24 21:58 Expected date of discharge: 03/28/24 Attending physician: Rock Reddy Consults: 03/24/24 21:57 Consult Physician Urgent Consulting Provider: Chaparro Godinez Consult Reason/Comments: acute cva Do you want consulting provider notified?: Yes Primary care physician: Stated None Hospital Course: Final diagnosis -Probable acute stroke in the brainstem. As affecting sensorium. Per family, does not want further testing and considering possible hospice, refusing MRI Will treat empirical aspirin, Lipitor. Family wanting conservative measures and have pursued hospice. No further recommendations from neurology at this time. -Bacterial conjunctivitis -Possible UTI could be contributing to encephalopathy, ruled out, urine culture showing normal carmen, antibiotics discontinued -Essential hypertension, accelerated. Uncontrolled and noncompliant with medications. 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 Has a long history of the same. Stopped taking medications of 6 years ago. Because of risk of falls no anticoagulation as discussed with the daughter. -Hypomagnesemia 1.7 due to poor diet -DNR Discharge disposition Patient is being discharged in a stable condition with guarded prognosis to hospice house. Total time taken is greater than 35 minutes. Hospital course This is a 73-year-old male who was recently admitted with increased confusion with altered mental status and encephalopathy multifactorial with concerns of probable acute stroke as well as urinary tract infection and noncompliance with medications. Patient also with severe cognitive impairment likely dementia although never diagnosed. Patient is extremely noncompliant per family and reports has not seen a doctor in over 7 years and has not taken any medications with significant history. Patient is not eating and per family has no quality of life and has been contemplating hospice. Hospice was consulted and family would like patient to go to the hospice house. Please refer to other consultation notes for further HPI. Currently no reports of chest pain, shortness of breath, or palpitations. Patient is afebrile. No reports of na usea or vomiting and patient is not really eating anything. Patient will be going to hospice house today. Overall poor prognosis Physical exam: Gen: This is a 73-year-old male who is awake, alert and oriented x 1, baseline, elderly appearing, ill-appearing, unkempt HEENT: Head is atraumatic, normocephalic. Pupils equal, round. Sclerae is anicteric. NECK: Supple. No JVD. No lymphadenopathy. No thyromegaly. LUNGS: Diminished breath sounds bilaterally otherwise clear to auscultation. No wheezes or rhonchi. No intercostal retractions. HEART: S1, S2 are muffled ABDOMEN: Soft. Thin. Bowel sounds are present. No masses. No tenderness. EXTREMITIES: No pedal edema. No calf tenderness. NEUROLOGICAL: Patient is awake, alert and oriented x 1. Diffusely weak Please refer to medication reconciliation sheet for a list of medications. The impression and plan of care has been dictated by Brii Gonzalez, Nurse Practitioner as directed. Dr. Maren MD I have performed a history and examination and MDM of this patient, discussed the same with the dictator, and agree with the dictator's assessment and plan as written ,documented as a scribe. Based on total visit time, I have performed more than 50% of the visit. Patient Condition at Discharge: Poor Plan - Discharge Summary Discharge Rx Participant: No New Discharge Prescriptions: No Action No Known Home Medications Discharge Medication List No Known Home Medications 03/24/24 [History] Follow up Appointment(s)/Referral(s): Fabiano Ross DO [STAFF PHYSICIAN] - 1-2 days Discharge Disposition: HOME WITH HOSPICE
--- NOTE | 2024-04-05 11:52 | CDI ---
Documentation Clarification Form Date: 04/05/2024 From: Gia French Phone: [phone] Admit Date: 03/24/2024 09:58:00 PM Patient Name: Chang Olmedo Visit Number: [id number] Discharge Date: 03/28/2024 03:05:00 PM ATTENTION: The Clinical Documentation Specialists (CDI) and [facility] Coding Staff appreciate your assistance in clarifying documentation. Please respond to the clarification below the line at the bottom and electronically sign. The CDI & [facility] Coding staff will review the response and follow-up if needed. Please note: Queries are made part of the Legal Health Record. If you have any questions, please contact the author of this message via ITS. Dr. Chaparro Godinez: There is documentation of encephalopathy probably multifactorial including UTI and possibly due to CVA in the query response 04/03. Additional clarification of the query response is requested. History/Risk Factors: 73 year-old male with a history of mini strokes, atrial fibrillation, DM2, HTN Cardiomyopathy who presents with stroke-like symptoms Clinical Indicators: 04/03 Query Response as to etiology of encephalopathy: Probable multifactorial, including UTI, and possibly due to CVA 03/26 Neurology consult, Assessment and Plan: "Probable acute ischemic stroke manifesting with some speech difficulty/aphasia. Altered mental status, possible metabolic encephalopathy due to other conditions. Acute UTI." 03/26 IM PN, Assessment: "Possible UTI could be contributing to encephalopathy, ruled out, urine culture showing normal carmen, antibiotics discontinued. Severe cognitive impairment, likely dementia although never diagnosed." 03/24-03/28 Sodium: 130, 134, 133, 133 BUN: 26, 27, 38, 36 Creatinine: 1.63, 1.57, 1.43, 1.30 03/24 Urinalysis: Protein: Trace, Glucose: Trace, Blood: Small, Leukocyte Esterase: Large, RBC: 13, WBC: >182, WBC Clumps: Few, Mucus: Rare 03/24 Urine Culture: Apparent skin and/or genital carmen 03/24 CT Brain, Impression: No definite acute process." 03/24 CTA Head/Neck, Impression: No significant abnormality seen.' Treatment: Consult Neurology Ceftriaxone 1gram IV [id number] 03/25-03/26 Normal Saline IV 75cc/hour 03/27 Please clarify the query response as to the etiology of the encephalopathy: [ ] Metabolic encephalopathy secondary to CVA [ x ] Metabolic encephalopathy, multifactorial, secondary to hyponatremia, STEPH, possible UTI and CVA [ ] Other, please specify [ ] Unable to determine MTDD
== END 2024-03-28 15:05 | disposition hospice, home (50) | DRG 64 ==
LOC: EC 19:51 → 3SCARD 21:58
PROVIDERS: ADMIT Hospitalist; ATTEND Hospitalist
DX: I63.9 Cerebral infarction, unspecified (principal); G93.41 Metabolic encephalopathy; I42.9 Cardiomyopathy, unspecified; I48.19 Other persistent atrial fibrillation; N17.9 Acute kidney failure, unspecified; N39.0 Urinary tract infection, site not specified; R47.01 Aphasia; E11.9 Type 2 diabetes mellitus without complications; E83.42 Hypomagnesemia; I11.0 Hypertensive heart disease with heart failure; I50.9 Heart failure, unspecified; J44.9 Chronic obstructive pulmonary disease, unspecified; F03.B0 Unspecified dementia, moderate, without behavioral disturbance, psychotic disturbance, mood disturbance, and anxiety; Z51.5 Encounter for palliative care; Z66 Do not resuscitate; Z28.310 Unvaccinated for COVID-19; E86.9 Volume depletion, unspecified; R29.705 NIHSS score 5; M62.50 Muscle wasting and atrophy, not elsewhere classified, unspecified site; R26.9 Unspecified abnormalities of gait and mobility; R32 Unspecified urinary incontinence; R90.82 White matter disease, unspecified; T50.906A Underdosing of unspecified drugs, medicaments and biological substances, initial encounter; Z91.128 Patient's intentional underdosing of medication regimen for other reason; Z91.199 Patient's noncompliance with other medical treatment and regimen due to unspecified reason; H10.89 Other conjunctivitis; Z86.73 Personal history of transient ischemic attack (TIA), and cerebral infarction without residual deficits; Z91.81 History of falling
CPT/HCPCS: 36415; 70450; 70496; 70498; 71046; 80048; 80053; 80061; 81001; 82550; 83735; 83880; 84484; 85025; 85610; 85730; 87086; 93005; 96374; 99291